=== PATIENT | female | born 1980 | race Caucasian/White ===

== ENCOUNTER 2022-03-07 20:06 | Emergency (ER) | payer OTHER, SELFPAY ==
--- NOTE | ~2022-03-07 | US_ITS ---
EXAMINATION: US VENOUS ULTRASOUND WITH DOPPLER LOWER EXTREMITY, LEFT CLINICAL INFORMATION: Left lower extremity pain COMPARISON: None TECHNIQUE: Ultrasound of the deep veins is performed from the hip to the calf with compression sonography and color and pulse Doppler assessment. Spectral analysis with color-flow imaging is performed. FINDINGS: There is normal venous compression and respiratory variation and augmented flow. The visualized common femoral vein, superficial femoral vein, profunda femoral vein, popliteal vein, and the trifurcation region shows no evidence of deep venous thrombosis. There is no significant popliteal fossa cyst. If the patient's symptoms persist, followup ultrasound in 5 days 7 days might be of value to exclude proximal propagation from a non-visualized calf vein. US/US venous duplex LE LT IMPRESSION: No DVT demonstrated in the left lower extremity.
--- NOTE | ~2022-03-07 | XR_ITS ---
EXAMINATION: XR CHEST CLINICAL INFORMATION: Chest pain. COMPARISON: None TECHNIQUE: Frontal view of the chest was obtained. FINDINGS: No significant abnormality is noted involving the heart, lungs, mediastinum, bony thorax or soft tissues. XR/XR chest 1V IMPRESSION: Unremarkable chest examination.
[2022-03-07 20:38] VITALS: BP 153/87; PULSE 92; TEMP 36.3; O2SAT 98; BMI 29.7
--- NOTE | 2022-03-07 20:45 | ECG_ITS ---
Test Reason : CX PAIN Blood Pressure : / mmHG Vent. Rate : 084 BPM Atrial Rate : 084 BPM P-R Int : 138 ms QRS Dur : 088 ms QT Int : 372 ms P-R-T Axes : 047 -05 030 degrees QTc Int : 439 ms Normal sinus rhythm Normal ECG When compared with ECG of 27-JUL-2018 16:53, Vent. rate has decreased BY 41 BPM Referred By: Generic ED Physician Electronically Signed By:EUGENIO SHAH MD
--- NOTE | 2022-03-07 22:01 | ED_ITS ---
HPI - Extremity Problem General Chief complaint: Extremity Problem Stated complaint: leg pain, radiates up body Time Seen by Provider: 03/07/22 21:01 History of Present Illness HPI Narrative: Patient is a 41-year-old female with a history of diabetes, hypertension, high cholesterol. Presented today with 2 problems 1 is that she is having chest pain that is on the left side it is lasting a few minutes. Not associated with any specific events. Not associated with shortness of breath. Not worsen with deep breath. And then it subsequently goes away. Not on any control. Patient denies having any history of blood clots. In addition patient is also developing left thigh pain. Patient denies any trauma. Denies any travel. No history of blood clots in the past. Not on blood thinners. No history of cancer. The pain is fairly constant the lower extremity. Does not radiate. Denies any fever chills. There is no rash. Patient from home. The chest pain and leg pain are not related. MD Complaint: extremity pain Related Data Previous Rx's Medication Instructions Recorded metformin 1,000 mg tablet 1,000 mg PO BID #60 tabs 03/19/21 blood sugar diagnostic (FreeStyle #50 ea 05/15/21 Test strips) blood sugar diagnostic (OneTouch #100 ea 10/03/21 Ultra Test strips) gabapentin 100 mg capsule 100 mg PO BEDTIME #14 caps 10/03/21 insulin glargine 100 unit/mL 45 unit (0.45 mL) subcut DAILY 28 10/03/21 subcutaneous solution (Lantus days #12.6 mL U-100 Insulin) lancets 33 gauge (OneTouch Delica #100 ea 10/03/21 Lancets) Allergies Allergy/AdvReac Type Severity Reaction Status Date / Time No Known Allergies Allergy Verified 03/07/22 20:45 [No Known Allergies*] Review of Systems Review of Systems: No fever no chills no cough no congestion Yes all other systems are reviewed and are negative [facility] Past Medical History Attestation statement: The following information was validated with the patient. Medical History Class 1 obesity with serious comorbidity and body mass index (BMI) of 34.0 to 34.9 in adult Diabetes mellitus type 2, insulin dependent Left sided sciatica oysterman (current) use of insulin Microalbuminuria Mild recurrent major depression Surgical History History of tubal ligation Family History Family History Mother Diabetes Mental health disorder Father Hypertension Social History Social History Housing: Apartment Alcohol intake: never Patient Tobacco Use Status: Current everyday Tobacco user Tobacco use type: Cigarette Cigarettes Per Day: 4 e-Cigarette/Vaping Use: Never Used Second Hand Smoke Exposure: No Advance Directives: No Advance Directives Information Provided: No service: No Current occupational status: employed Current occupational exposures/hazards: No Physical Exam Vital Signs: Vital Signs: Last Vital Signs Temp 97.4 F 03/07/22 20:38 Pulse 85 03/08/22 00:06 Resp 18 03/08/22 00:06 BP 131/80 03/08/22 00:06 Pulse Ox 98 03/08/22 00:06 O2 Del Method 03/08/22 00:06 BMI result Body Mass Index 29.7 Appearance: Alert. Oriented X3. No acute distress. Eyes: Pupils equal, round and reactive to light. ENT: Pharynx normal. Neck: Normal inspection. Neck supple. No lymph nodes noted. No crepitus CVS: Normal heart rate and rhythm. Pulses normal. Normal S1 and S2 Respiratory: No respiratory distress. Breath sounds normal. No Wheezing. No rales. There is no chest wall tenderness. Chest pain not reproduced with touch Abdomen: Soft and nontender. No rigidity. No distention. good BS x4 Skin: Skin warm and dry. Normal skin color. Normal skin turgor. Extremities: No lower extremity edema. Neurovascular intact to all extremities. No Lacerations. No Rash. Calf size equal at 10 cm below the tibial tuberosity bilaterally. There is good pulses distally. Skin intact. Neuro: Oriented X 3. No motor deficit. No sensory deficit. Moving all extermities. No slurred speech MDM - Extremity (Nontraumatic) MDM Narrative Medical decision making narrative: Patient's D-dimer is negative. Ultrasound of the lower extremity is negative for DVT. Making PE unlikely. Patient's chest pain atypical. EKG showed a sinus pattern heart rate is 80 LA QRS QT within normal limits there is no acute ST segment elevation. Patient's troponin was negative. He does have multiple wrist but atypical history negative EKG troponin negative heart score still less than 3. Will discharge patient home for close follow-up. Chest x-ray showed no focal infiltrate no pneumonia no pneumothorax. Patient's sugar however was elevated at close to 400. Will give a dose of insulin. Will have patient closely follow up on an outpatient basis after sugar comes down. Patient's sugars down to less than 200. In stable condition will discharge home. Lab Data Attestation: I reviewed the patient's lab results. Result diagrams: 03/07/22 22:18 03/07/22 22:18 Labs: Lab Results 03/07/22 03/07/22 03/07/22 Range/Units 22:18 22:18 22:18 WBC 13.3 H (4.8-10.8) X10*3/uL RBC 5.55 H (4.20-5.50) X10*6/uL Hgb 15.0 (12.0-16.0) g/dl Hct 44.1 (37.0-47.0) % MCV 79.5 L (80.0-98.0) fL MCH 27.0 (27.0-33.0) pg MCHC 34.0 (31.0-35.0) g/dl RDW 12.2 (11.0-16.0) % Plt Count 398 (160-400) X10*3/uL MPV 10.2 (9.4-12.3) fL Immature Gran % (Auto) 0.5 H (0.0-0.4) % Neut % (Auto) 60.9 (45-73) % Lymph % (Auto) 29.4 (20-40) % Alexander % (Auto) 6.9 (2-11) % Eos % (Auto) 1.7 (0-4) % Baso % (Auto) 0.6 (0-2) % Lymph # (Auto) 3.9 (1.2-4.9) X10*3/uL Alexander # (Auto) 0.9 (0.1-1.2) X10*3/uL Eos # (Auto) 0.2 (0.0-0.4) X10*3/uL Baso # (Auto) 0.1 (0.0-0.2) X10*3/uL Abs Immat Gran (auto) 0.06 H (0.00-0.03) X10*3/uL Absolute Neuts (auto) 8.1 (2.0-8.3) x10*3/uL Absolute Nucleated RBC 0.000 (0.0-0.012) X10*3/uL Nucleated RBC % (auto) 0.0 (0.0-0.2) /100WBC D-Dimer High Sensitivty < 150 NG/ML Sodium 135 (135-145) mmol/L Potassium 4.3 (3.3-5.1) mmol/L Chloride 97 (96-108) mmol/L Carbon Dioxide 27 (22-29) mmol/L Anion Gap 15 (12-20) BUN 15 (9-16) mg/dL Creatinine 0.92 (0.5-1.4) mg/dL Estim Creat Clear Calc 90.7 Estimated GFR > 60 POC Glucose (60-115) mg/dL Random Glucose 384 H* (60-115) mg/dL Calcium 9.7 (8.4-10.2) mg/dL Total Bilirubin 0.4 (0.0-1.0) mg/dL Direct Bilirubin < 0.2 (0.0-0.5) mg/dL AST 9 (5-31) U/L ALT 12 (0-31) U/L Alkaline Phosphatase 121 H (39-117) U/L Troponin I High Sens (<3.5-17.0) ng/L Total Protein 7.9 (6.5-8.0) g/dL Albumin 4.3 (3.5-5.0) g/dL Beta HCG, Quant < 2 mIU/mL 03/07/22 03/08/22 Range/Units 22:18 00:45 WBC (4.8-10.8) X10*3/uL RBC (4.20-5.50) X10*6/uL Hgb (12.0-16.0) g/dl Hct (37.0-47.0) % MCV (80.0-98.0) fL MCH (27.0-33.0) pg MCHC (31.0-35.0) g/dl RDW (11.0-16.0) % Plt Count (160-400) X10*3/uL MPV (9.4-12.3) fL Immature Gran % (Auto) (0.0-0.4) % Neut % (Auto) (45-73) % Lymph % (Auto) (20-40) % Alexander % (Auto) (2-11) % Eos % (Auto) (0-4) % Baso % (Auto) (0-2) % Lymph # (Auto) (1.2-4.9) X10*3/uL Alexander # (Auto) (0.1-1.2) X10*3/uL Eos # (Auto) (0.0-0.4) X10*3/uL Baso # (Auto) (0.0-0.2) X10*3/uL Abs Immat Gran (auto) (0.00-0.03) X10*3/uL Absolute Neuts (auto) (2.0-8.3) x10*3/uL Absolute Nucleated RBC (0.0-0.012) X10*3/uL Nucleated RBC % (auto) (0.0-0.2) /100WBC D-Dimer High Sensitivty NG/ML Sodium (135-145) mmol/L Potassium (3.3-5.1) mmol/L Chloride (96-108) mmol/L Carbon Dioxide (22-29) mmol/L Anion Gap (12-20) BUN (9-16) mg/dL Creatinine (0.5-1.4) mg/dL Estim Creat Clear Calc Estimated GFR POC Glucose 177 H (60-115) mg/dL Random Glucose (60-115) mg/dL Calcium (8.4-10.2) mg/dL Total Bilirubin (0.0-1.0) mg/dL Direct Bilirubin (0.0-0.5) mg/dL AST (5-31) U/L ALT (0-31) U/L Alkaline Phosphatase (39-117) U/L Troponin I High Sens < 3.5 (<3.5-17.0) ng/L Total Protein (6.5-8.0) g/dL Albumin (3.5-5.0) g/dL Beta HCG, Quant mIU/mL Discharge Plan Discharge Clinical Impression: Diabetes, Chest pain Patient Disposition: Home, Self-Care Instructions: Chest Pain (DC), How to Check your Blood Sugar (ED), Type 2 Diabetes Management for Adults (ED) Prescriptions: No Action metformin 1,000 mg tablet 1,000 mg PO BID Qty: 60 6RF (DME) FreeStyle Test Strip See Rx Instructions .Route Qty: 50 6RF Rx Instructions: Use 1 test strip twice a day gabapentin 100 mg capsule 100 mg PO BEDTIME Qty: 14 0RF Lantus U-100 Insulin 100 unit/mL solution 45 unit subcut DAILY 28 Days Qty: 12.6 5RF (DME) lancets [OneTouch Delica Lancets] 33 gauge misc See Rx Instructions .Route Qty: 100 3RF Rx Instructions: As directed (DME) OneTouch Ultra Test Strip See Rx Instructions .Route Qty: 100 3RF Rx Instructions: As directed Referrals: Carlos Schreiber MD [Physician] - Physician,Unknown J [Primary Care Provider] - Print Language: Barbadian
[2022-03-07 22:35] LABS: MANUAL DIFF FLAG NO
[2022-03-07 22:37] LABS: Basophils Absolute Auto 0.1 X10*3/uL (0.0-0.2); Basophils Percent Auto 0.6 % (0-2); Eosinophils Absolute Auto 0.2 X10*3/uL (0.0-0.4); Eosinophils Percent Auto 1.7 % (0-4); Hematocrit 44.1 % (37.0-47.0); Imm Gran Abs Auto 0.06 X10*3/uL (0.00-0.03); Imm Gran Pct Auto 0.5 % (0.0-0.4); Lymphocytes Absolute Auto 3.9 X10*3/uL (1.2-4.9); Lymphocytes Percent Auto 29.4 % (20-40); Mean Corpuscular Volume 79.5 fL (80.0-98.0); Mean Platelet Volume 10.2 fL (9.4-12.3); Monocytes Absolute Auto 0.9 X10*3/uL (0.1-1.2); Monocytes Percent Auto 6.9 % (2-11); Neutrophils Absolute Auto 8.1 x10*3/uL (2.0-8.3); Neutrophils Percent Auto 60.9 % (45-73); Platelet Count 398 X10*3/uL (160-400); Red Blood Count 5.55 X10*6/uL (4.20-5.50); Red Cell Distribution Width 12.2 % (11.0-16.0); White Blood Count 13.3 X10*3/uL (4.8-10.8)
[2022-03-07 22:54] LABS: D Dimer High Sensitivity < 150 NG/ML
[2022-03-07] MEDS: Aspirin 81 MG TAB.CHEW 324 MG PO (22:54)
[2022-03-07 22:59] LABS: Alanine Aminotransferase 12 U/L (0-31); Albumin Level 4.3 g/dL (3.5-5.0); Alkaline Phosphatase 121 U/L (39-117); Anion Gap 15 (12-20); Aspartate Amino Transferase 9 U/L (5-31); Bilirubin Direct < 0.2 mg/dL (0.0-0.5); Bilirubin Total 0.4 mg/dL (0.0-1.0); Blood Urea Nitrogen 15 mg/dL (9-16); Calcium 9.7 mg/dL (8.4-10.2); Carbon Dioxide 27 mmol/L (22-29); Chloride 97 mmol/L (96-108); Creatinine Clr Calc Pharmacy 90.7; Estimated Glomerular Filt Rate > 60; Glucose Random 384 mg/dL (60-115); Potassium 4.3 mmol/L (3.3-5.1); Sodium 135 mmol/L (135-145); Total Protein 7.9 g/dL (6.5-8.0)
[2022-03-07 23:00] LABS: Troponin-I High Sensitivity < 3.5 ng/L (<3.5-17.0)
[2022-03-07 23:01] LABS: HCG Quantitative < 2 mIU/mL
[2022-03-07] MEDS: Insulin Regular, Human 100 UNIT/ML 3 ML VIAL 9 UNIT IVPUSH (23:33)
[2022-03-08 00:06] VITALS: BP 131/80; PULSE 85; RESP 18; O2SAT 98
[2022-03-08 00:49] LABS: Glucose, Whole Blood 177 mg/dL (60-115)
== END 2022-03-08 01:24 | disposition home or self-care (01) ==
PROVIDERS: Emergency Provider Emergency Medicine Emergency Medical Services
DX: R07.89 Other chest pain (principal); E11.9 Type 2 diabetes mellitus without complications; M79.652 Pain in left thigh; I10 Essential (primary) hypertension; E78.00 Pure hypercholesterolemia, unspecified; Z79.4 Long term (current) use of insulin; F17.210 Nicotine dependence, cigarettes, uncomplicated
CPT/HCPCS: 36415; 71045; 80048; 80076; 82947; 84484; 84702; 85025; 85379; 93005; 93971; 96374; 99284

== ENCOUNTER 2024-04-19 10:55 | Outpatient (AMB) | payer MEDICAID, SELFPAY ==
--- NOTE | 2024-04-19 10:59 | MHC.PC.OV ---
Vital Signs 04/19/24 11:03 Height 5 ft 7 in Weight 205 lb BMI 32.1 BP 138/80 Blood Pressure Location Lt brachial Position Sitting Intake Visit Reasons: annual exam Intake Note: Patient here for an Annual Physical Exam Swedish Masseuse Required: No Accompanied by: Self / Same As Patient Allergies No Known Allergies [No Known Allergies*] Allergy (Verified 04/19/24 11:16) Medication List - Last Reconciled 04/19/24 by Norma Holbrook MD blood sugar diagnostic (FreeStyle Test strips) Use 1 test strip twice a day blood sugar diagnostic (OneTouch Ultra Test strips) As directed gabapentin 100 mg PO BEDTIME insulin glargine (Lantus U-100 Insulin) 30 units subcut DAILY lancets As directed metformin 1,000 mg PO BID Tobacco use date assessed: 04/19/24 Dental Screening Dental Screen Date: 04/19/24 Did you have a dental visit in the last 12 months?: No Did you have a dental problem in the last 6 months where you did not have access to dental care?: No Was dental information given to patient?: Patient has dentist HPI HPI Comments History of Present Illness Details This is a 44-year-old female with diabetes mellitus type 2 complicated with neuropathy on long-term current use of insulin that comes for her physical exam. Last diabetic eye exam was over a year ago in [place], [place]. A1c not on goal and she has been out of metformin for over a month. I will increase insulin and refill metformin. Last mammogram was over a year old. She is obese with a BMI of 32.1 and was advised to do diet and exercise to reach BMI goal less than 30. [facility] Medical History (Updated 04/19/24 @ 11:44 by Norma Holbrook MD) Mild recurrent major depression Microalbuminuria penitentiary (current) use of insulin Class 1 obesity with serious comorbidity and body mass index (BMI) of 34.0 to 34.9 in adult Left sided sciatica Diabetes mellitus type 2, insulin dependent Surgical History History of tubal ligation Family History Mother Diabetes Mental health disorder Father Hypertension Social History (Updated 04/19/24 @ 11:20 by Norma Holbrook MD) Housing: Apartment Alcohol intake: never Patient Tobacco Use Status: Current someday Tobacco user Tobacco use type: Cigarette Cigarettes Per Day: 3 e-Cigarette/Vaping Use: Never Used Second Hand Smoke Exposure: No service: No Current occupational status: employed Current occupational exposures/hazards: No Cognitive needs: No Hearing needs: No Vision needs: Yes Questionnaire PHQ-9 Over the last 2 weeks, how often have you been bothered by any of the following problems? 1. Little interest or pleasure in doing things: not at all 2. Feeling down, depressed, or hopeless: several days 3. Trouble falling or staying asleep, or sleeping too much: not at all 4. Feeling tired or having little energy: several days 5. Poor appetite or overeating: not at all 6. Feeling bad about yourself - or that you are a failure or have let yourself or your family down: not at all 7. Trouble concentrating on things, such as reading the newspaper or watching television: not at all 8. Moving or speaking so slowly that other people could have noticed. Or the opposite - being so fidgety or restless that you have been moving around a lot more than usual: not at all 9. Thoughts that you would be better off or of hurting yourself in some way: not at all Total score: 2 Depression Screening Interpretation: Negative Depression Screening Done: Yes 70320 - PHQ-9 Billing: Yes Source: Developed by Drs. Juanjose Chavarria, Ramila Zeng, Francisco J Austin and colleagues, with an educational nathan from [employer] Thrive Questionnaire Date Thrive assessed: 04/19/24 I am a: Patient What is your living situation today?: I have a steady place to live Within the past 12 months, did the food you bought not last and you didn't have the money to get more?: Never true Within the past 12 months, did you worry whether your food would run out before you got money to buy more?: Never true Do you have trouble paying for medicines?: No Do you have trouble getting transportation to medical appointments?: No Do you have trouble paying your heating and electricity bill?: No Do you have trouble taking care of your child, family member or friend?: No Do you have trouble with day-to-day activities such as bathing, preparing meals, shopping, managing finances, etc.?: No Are you currently unemployed and looking for a job?: No Are you interested in more education?: No Please select the resources that you would like help with: None Currently or been in a relationship where the following occur: No concerns reported THRIVE Score: 0 AUDIT C Alcohol Use Questionnaire (AUDIT-C) 1. How often do you have a drink containing alcohol?: Monthly or less 2. How many drinks containing alcohol do you have on a typical day when you are drinking?: 3 or 4 3. How often do you have six or more drinks on one occasion?: Never Total Score: 2 Score Reviewed/Action Taken: No BUCK-7 AMB Questionnaire BUCK-7 Date BUCK - 7 assessed: 04/19/24 Feeling nervous, anxious, or on edge: 0 = Not at all Not being able to stop or control worryin = Not at all Worrying too much about different things: 0 = Not at all Trouble relaxin = Several days Being so restless that it is hard to sit still: 0 = Not at all Becoming easily annoyed or irritable: 0 = Not at all Feeling afraid as if something awful might happen: 0 = Not at all Total BUCK-7 score (0-4 normal; 5-9 mild; 10-14 moderate; 15-21 severe): 1 Source: Developed by Drs. Juanjose Chavarria, Ramila Zeng, Francisco J Austin and colleagues, with an educational nathan from [employer] BUCK-7 Assessment Billing BUCK-7 Assessment Tool: BUCK-7 Assessment 36911 Review of Systems Const All systems reviewed & are unremarkable except as noted in HPI and below Reports fatigue Card Denies chest pain at rest, Denies chest pain with activity, Denies edema, Denies irregular heart rhythm, Denies claudication, Denies dyspnea, Denies dyspnea on exertion, Denies orthopnea, Denies paroxysmal nocturnal dyspnea and Denies slow heart rate Resp Denies cough, Denies dyspnea and Denies dyspnea on exertion GI Denies abdominal pain, Denies change in bowel habits, Denies excessive flatus, Denies nausea and Denies vomiting Endo Reports fatigue Physical exam (Primary Care) Vital Signs: Last Vital Signs BP 138/80 04/19/24 11:03 BMI result Body Mass Index 32.1 BMI Assessment/Plan discussion: High BMI High, discussed plan: lifestyle, weight reduction, dietary and physical activity Tobacco/Smoking Status: Tobacco use Status Tobacco use date assessed 04/19/24 04/19/24 11:06 Patient Tobacco Use Status Current someday Tobacco 04/19/24 11:06 Tobacco use type Cigarette 04/19/24 11:01 e-Cigarette/Vaping Use Never Used 04/19/24 11:01 Are you ready to quit: Yes Relapse Prevention: discussed the importance of a supportive environment, discussed extending NRT, discussed negative mood or depression after quitting, weight gain after smoking is common and discussed dietary, exercise and/or lifestyle changes Number of minutes spent counselin CPT code: 97400 - 4-10 Minutes PHQ-9: PHQ-9 Score PHQ-9: Total score 2 04/19/24 11:10 Depression Screening Interpretation: Negative Thrive Assessment: Date of Thrive Assessment Date Thrive assessed 04/19/24 04/19/24 11:01 Currently or been in a relationship where the following occur: No concerns reported HENMT Head: Yes normal to inspection, Yes normocephalic and Yes atraumatic Ears: external ears normal Eyes General: appearance normal, both eyes and all related structures Eyelids: Yes eyelids normal Conjunctivae: conjunctivae normal Neck Neck: Yes normal visual inspection and Yes supple Resp Effort & Inspection: normal respiratory effort Auscultation: clear to auscultation bilaterally Cardio Jugular venous distension: no JVD Rate: regular rate Rhythm: regular rhythm Heart sounds: S1 normal heart sound present and S2 normal heart sound present GI Inspection: Yes normal to inspection Palpation (GI): Soft to palpation and nontender Auscultation: normal bowel sounds Skin General skin exam: no rashes or lesions noted Neuro General: no focal motor deficits Extrem General: Yes full ROM Psych Appearance: grossly normal Results AMB Hemoglobin A1c AMB Hemoglobin A1c 13.2 % Last Edit by JESSICA Stiles on 04/19/24 11:11 Results Reviewed Results Reviewed: Laboratory Last Values Hgb A1c (Clinic) 13.2 % (4.0-6.0) H 04/19/24 10:59 Assessment and Plan Assessment & Plan (1) Physical exam: Code(s): Z00.00 - Encounter for general adult medical examination without abnormal findings Plan: Repeat in a year. (2) Type 2 diabetes mellitus with complication, with long-term current use of insulin: Code(s): E11.8 - Type 2 diabetes mellitus with unspecified complications; Z79.4 - long term care phlebotomist (current) use of insulin Plan: Continue metformin. Increase insulin to 35 units once a day. Referred to Ophthalmology. (3) Diabetic neuropathy: Code(s): E11.40 - Type 2 diabetes mellitus with diabetic neuropathy, unspecified Qualifiers: Diabetes mellitus type: type 2 Diabetes mellitus complication detail: with other neurological complication Qualified Code(s): E11.49 - Type 2 diabetes mellitus with other diabetic neurological complication Plan: Continue gabapentin. Orders: Orders Microalbumin, Random (w Creat) Today R80.9 - Proteinuria, unspecified Complete Blood Count Auto Diff Today D72.829 - Elevated white blood cell count, unspecified AMB Hemoglobin A1c Today E11.9 - Type 2 diabetes mellitus without complications, Z79.4 - long term care phlebotomist (current) use of insulin Lipid Panel Today E78.5 - Hyperlipidemia, unspecified Vitamin D 25-OH (D2 and D3) Today E55.9 - Vitamin D deficiency, unspecified Vitamin B12 and Folate Today E53.8 - Deficiency of other specified B group vitamins MM tomosynthesis screening BI Today Z12.31 - Encounter for screening mammogram for malignant neoplasm of breast Referrals Ophthalmology Referral E11.9 - Type 2 diabetes mellitus without complications, Z79.4 - penitentiary (current) use of insulin Medications: Changed From insulin glargine (Lantus U-100 Insulin) 35 units subcut DAILY E11.9 - Type 2 diabetes mellitus without complications, Z79.4 - long term care phlebotomist (current) use of insulin To insulin glargine (Lantus U-100 Insulin) 35 units (0.35 mL) subcut DAILY 90 days 31.5 mL 1RF E11.9 - Type 2 diabetes mellitus without complications, Z79.4 - penitentiary (current) use of insulin Refilled metformin 1,000 mg PO BID 60 tabs 6RF Coding Level of Care Code Est Pt Prev Care 40-64y(43851) Diagnoses Physical exam Z00.00 Type 2 diabetes mellitus with complication, with long-term current use of insulin E11.8; Z79.4 Other diabetic neurological complication associated with type 2 diabetes mellitus E11.49 Diabetes mellitus type: type 2 Diabetes mellitus complication detail: with other neurological complication Additional Codes BUCK-7 Assessment Billing - BUCK-7 Assessment Tool: BUCK-7 Assessment 40889 ([id number]) Vital Signs *Quality* - CPT code: 34093 - 4-10 Minutes ([id number]) Time Spent (min) 31
[2024-04-19 11:03] VITALS: BP 138/80; BMI 32.1
== END 2024-04-19 11:35 | disposition home or self-care (01) ==
PROVIDERS: PCP Internal Medicine; Visit Provider Internal Medicine
DX: Z00.00 Encounter for general adult medical examination without abnormal findings (principal); E11.8 Type 2 diabetes mellitus with unspecified complications; Z79.4 Long term (current) use of insulin; E11.49 Type 2 diabetes mellitus with other diabetic neurological complication

== ENCOUNTER → 2024-04-19 10:55 | Outpatient (BNVA) | payer MEDICAID, SELFPAY | PROVIDERS: PCP Internal Medicine; Visit Provider Internal Medicine | DX: Z00.00 Encounter for general adult medical examination without abnormal findings (principal); E11.49 Type 2 diabetes mellitus with other diabetic neurological complication; Z79.4 Long term (current) use of insulin | CPT/HCPCS: 83036; 99396 ==

== ENCOUNTER 2024-12-29 09:00 | Outpatient (REF) | payer MEDICAID, SELFPAY ==
--- OUTSIDE RECORDS SUMMARY | 2024-12-29 09:28 | XMS_ITS | Clinical Summary ---
Author Organization [employer] Address [address] [facility] [address] [place] [address] Care Team Providers Care Artifacts Conservator Name Role Phone Unavailable Primary Care Provider Unavailabl e Allergies No known active allergies Medications insulin aspart (NovoLOG FLEXPEN) 100 UNIT/ML penIndication s:Type 2 diabetes mellitus with hyperglycemia , with long-term current use of insulin (CMS/HCC) Use 8 units before breakfast, lunch and dinner -surinamese 10 mL 12 Active Lantus SoloStar 100 UNIT/ML penIndication s:Type 2 diabetes mellitus with hyperglycemia , with long-term current use of insulin (CMS/HCC) Inject 40 units at bedtime -surinamese 3 mL 3 025 Active metFORMIN (Glucophage) 1000 MG tabletIndicat ions:Type 2 diabetes mellitus with hyperglycemia , with long-term current use of insulin (CMS/HCC) Take 1 tablet (1,000 mg) by mouth 2 times daily. 60 tablet 3 Active Blood Pressure kit Check blood pressure daily 1 kit Active Continuous Glucose Geriatric Social Work Professor (FreeStyle Corine 3 [place]) deviceIndicat ions:Type 2 diabetes mellitus with hyperglycemia , with long-term current use of insulin (CMS/HCC) 1 each Once per day. Use as directed for CGM 1 each 025 Active glucose blood (FreeStyle Precision Nicolas Test) test stripIndicati ons:Type 2 diabetes mellitus with hyperglycemia , with long-term current use of insulin (CMS/HCC) Use to test blood sugar bid times daily in case of CGM failure or extremes of BG 100 each 11 025 2025 Active Continuous Glucose Sensor (FreeStyle Corine 3 Plus Sensor) miscIndicatio ns:Type 2 diabetes mellitus with hyperglycemia , with long-term current use of insulin (CMS/HCC) 1 each every 15 days. Apply 1 every 15 days as directed for CGM 2 each 11 Active Lantus SoloStar 100 UNIT/ML pen INJECT 35 UNIT (0.35 ML) SUBCUTANEOUSLY DAILY FOR 90 DAYS 025 2024 Discontinued(R eorder (will not trigger notification to Pharmacy)) metFORMIN (Glucophage) 1000 MG tablet Take 1 tablet by mouth 2 times daily. 024 2024 Discontinued(R eorder (will not trigger notification to Pharmacy)) insulin aspart (NovoLOG FLEXPEN) 100 UNIT/ML penIndication s:Type 2 diabetes mellitus with hyperglycemia , with long-term current use of insulin ([facility]) Use 8 units before breakfast, lunch and dinner -surinamese 10 mL 12 025 2024 Discontinued(E ntered in error) Lantus SoloStar 100 UNIT/ML penIndication s:Type 2 diabetes mellitus with hyperglycemia , with long-term current use of insulin ([facility]) Inject 40 units at bedtime -surinamese 3 mL 3 2024 Discontinued(E ntered in error) metFORMIN (Glucophage) 1000 MG tabletIndicat ions:Type 2 diabetes mellitus with hyperglycemia , with long-term current use of insulin ([facility]) Take 1 tablet (1,000 mg) by mouth 2 times daily. 60 tablet 3 2024 Discontinued(E ntered in error) Active Problems Problem Noted Date Diagnosed Date Type 2 diabetes mellitus wit h hyperglycemia, with long-term current use of insulin 12/23/2024 Assessment & Plan (12/23/2024 1:34 PM EDT): Hx of type 2 diabetes. Reports being on Metformin and Lantus 40 Units. 12/23/24 A1c 11 and BGL >200. -Urine dip without evidence of DKA -Got pt new patient visit. -Ordered labs 12/23/24 -Start insulin aspart (NovoLOG FLEXPEN) 100 UNIT/ML pen -Start metFORMIN (Glucophage) 1000 MG -Start Lantus SoloStar 100 UNIT/ML pen Encounters Date Type Department Care Team Description 12/23/2024 2:00 PM EDT Office Visit [facility] [address] [place] [address] Nancy Aaron MD Type 2 diabetes mellitus with hyperglycemia, with long-term current use of insulin ([facility]) (Primary Dx); Viral gastroenteritis; Elevated blood pressure reading without diagnosis of hypertension; Screening examination for STI 12/23/2024 Travel 10/15/2024 Population Health Risk Score [facility] () Department [address] [place] [id number] Provider, Population [employer] Generic from Last 3 Months Family History Medical History Relation Name Comments Stomach cancer Maternal Grandfather Diabetes Mother Relation Name Status Comments Maternal Grandfather Mother Social History Tobacco Use Types Packs/Day Years Used Date Smoking Tobacco: Never Passive Smoke Exposure: Never Smokeless Tobacco: Never Tobacco Cessation:Counseling Given: Not Answered Comments No Sex and Gender Information Value Date Recorded Sex Assigned at Female 06/03/2022 10:27 AM EDT Legal Sex Female 10:27 AM EDT Gender Identity Female 07/05/2024 10:43 AM EST Sexual Orientation Straight 07/05/2024 10 :43 AM EST Last Filed Vital Signs Vital Sign Reading Time Taken Comments Blood Pressure 148/98 12/23/2024 12:58 PM EDT Pulse 74 12/23/2024 12:58 PM EDT Temperature 37.1 ??C (98.8 ??F) 12/23/2024 1 2:58 PM EDT Respiratory Rate 18 12/23/2024 12:5 8 PM EDT Oxygen Saturation - - Inhaled Oxygen Concentration - - Weight 99.7 kg (219 lb 12.8 oz) 025 12:58 PM EDT Height 170.2 cm (5' 7 ) 12/23/2024 12:5 8 PM EDT Body Mass Index 34.43 12/23/2024 12:58 PM EDT Plan of Treatment Upcoming Encounters Date Type Department Care Team (Late st Contact Info) Description 12/30/2024 1:00 PM EDT Clinical Support [facility] [address] [place] [phone] 01/24/2025 10:45 AM EDT Office Visit [facility] [address] [place] [phone] Jeny Michaels DO [address] [place] [address] Health Maintenance Due Date Last Done Comments Depression Screening 1980 HIV Screening 1980 Lipid Panel 1980 SDOH Screening 1980 Disability Screening 1980 Diabetes: Foot Exam 1990 Eye Exam 1990 Alcohol/Substance Use Screening 1992 Family Planning (PISQ) 1995 Hepatitis C Screening 1998 DTaP/Tdap/Td Vaccines (1 - Tdap) 1999 Diabetes: Urine Protein Screening 1999 Hepatitis B Vaccines (1 of 3 - 19+ 3-dose series) 1999 Pneumococcal Vaccine: Pediat rics (0 to 5 Years) and At-Risk Patients (6 to 49) Years) (1 of 2 - PCV) 1999 Pap Smear 2001 Cervical Cancer Screening 2010 HPV/Cotest 2010 Mammogram 2020 COVID-19 Vaccine (1 - 2023-2 5 season) 2024 Influenza Vaccine (#1) 2024 07/31/2018 Diabetes: Hemoglobin A1C 03/25/2025 12/23/2024 Tobacco Screening 12/23/2025 12/23/2024 Zoster Vaccines (1 of 2) 2030 RSV Patients and Pa tients Aged 60 years or older (1 - 1-dose 75+ series) 2055 HIB Vaccines Aged Out No longer eligi ble based on patient's age to complete this topic HPV Vaccines Aged Out No longer eligi ble based on patient's age to complete this topic Hepatitis A Vaccines Aged Out No long er eligible based on patient's age to complete this topic IPV Vaccines Aged Out No longer eligi ble based on patient's age to complete this topic Meningococcal B Vaccine Aged Out No l onger eligible based on patient's age to complete this topic Meningococcal Vaccine Aged Out No teo branden eligible based on patient's age to complete this topic RSV under 20 months Aged Out No longe r eligible based on patient's age to complete this topic Rotavirus Vaccines Aged Out No longer eligible based on patient's age to complete this topic Procedures Procedure Name Priority Date/Time Associated Diagnosis Comments POCT URINALYSIS DIPSTICK Routine 12/23/2024 1:20 PM EDT Type 2 diabetes mellitus with hyperglycemia, with long-term current use of insulin ([facility]) POCT GLUCOSE Routine 12/23/2024 1:20 PM EDT Type 2 diabetes mellitus with hyperglycemia, with long-term current use of insulin ([facility]) POCT GLYCATED HEMOGLOBIN, TOTAL Routine 12/23/2024 1:20 PM EDT Type 2 diabetes mellitus with hyperglycemia, with long-term current use of insulin ([facility]) from Last 3 Months Results * (ABNORMAL) POCT A1C (12/23/2024 1:20 PM EDT) Hemoglobin A1C 11.9(A) 4.0 - 6.0 % Blood 12/23/2024 1:20 PM EDT Nancy Aaron MD POINT OF CARE TEST ENTER/E DIT ORDERABLES Final Result * (ABNORMAL) POCT glucose manually resulted (12/23/2024 1:20 PM EDT) Glucose Blood, POC 291(A) 60 - 200 mg/dL Blood Capillary blood specimen / Unknown 12/23/2024 1:20 PM EDT Nancy Aaron MD POINT OF CARE TEST ENTER/E DIT ORDERABLES Final Result * (ABNORMAL) POCT urinalysis dipstick manually resulted (12/23/2024 1:20 PM EDT) Color, UA Yellow Clarity, UA Clear Glucose, UA Trace Comment:500 mg/dl Bilirubin, UA Negative Ketones, UA Negative Spec Grav, UA 1.020 Blood, UA Positive(A) Negative, None Detected Comment:trace pH, UA 5.5 Protein, UA Trace Comment:30 mg Urobilinogen, UA 0.2 Leukocytes, UA Trace Negative, Rare, Trace Nitrite, UA Negative Negative, None Detected Urine 12/23/2024 1:20 PM EDT Nancy Aaron MD POINT OF CARE TEST ENTER/E DIT ORDERABLES Final Result from Last [address] [place] [id number] [facility] [address] [place] [id number] [place] [phone] [place] [phone]
[2024-12-29 11:28] LABS: MANUAL DIFF FLAG NO
[2024-12-29 11:34] LABS: Basophils Absolute Auto 0.1 X10*3/uL (0.0-0.2); Basophils Percent Auto 0.9 % (0-2); Eosinophils Absolute Auto 0.3 X10*3/uL (0.0-0.4); Eosinophils Percent Auto 4.5 % (0-4); Hematocrit 41.2 % (37.0-47.0); Hemoglobin 13.4 g/dl (12.0-16.0); Imm Gran Abs Auto 0.03 X10*3/uL (0.00-0.03); Imm Gran Pct Auto 0.4 % (0.0-0.4); Lymphocytes Absolute Auto 2.5 X10*3/uL (1.2-4.9); Lymphocytes Percent Auto 32.4 % (20-40); Mean Corpuscular HGB Conc 32.5 g/dl (31.0-35.0); Mean Corpuscular Hemoglobin 26.6 pg (27.0-33.0); Mean Corpuscular Volume 81.9 fL (80.0-98.0); Mean Platelet Volume 10.3 fL (9.4-12.3); Monocytes Absolute Auto 0.6 X10*3/uL (0.1-1.2); Monocytes Percent Auto 8.5 % (2-11); Neutrophils Percent Auto 53.3 % (45-73); Platelet Count 400 X10*3/uL (160-400); Red Blood Count 5.03 X10*6/uL (4.20-5.50); Red Cell Distribution Width 13.1 % (11.0-16.0); White Blood Count 7.6 X10*3/uL (4.8-10.8)
[2024-12-29 12:18] LABS: Cholesterol 169 mg/dL (<200); HDL Cholesterol 47 mg/dL (>40); LDL Cholesterol Calculated 103 mg/dL (<100); Triglycerides 95 mg/dL (<150)
[2024-12-29 12:29] LABS: Creatinine Urine 77.03 mg/dL; Microalbum/Creatinine Ratio Ur 131.1 ug/mg cr (<30)
[2024-12-29 12:36] LABS: Folate 11.1 ng/mL (> or = 4.0); Vitamin B12 224 pg/mL (200-900)
[2025-01-01 17:13] LABS: Vitamin D 25-OH, D2 <4 ng/mL; Vitamin D 25-OH, D3 13 ng/mL; Vitamin D 25-OH, Total 13 ng/mL (30-100)
== END 2024-12-29 09:01 | disposition home or self-care (01) ==
LOC: HO.HHCL 09:00
PROVIDERS: Visit Provider Internal Medicine
DX: E78.5 Hyperlipidemia, unspecified (principal); R80.9 Proteinuria, unspecified; E55.9 Vitamin D deficiency, unspecified; D72.829 Elevated white blood cell count, unspecified; E53.8 Deficiency of other specified B group vitamins
CPT/HCPCS: 36415; 80061; 82043; 82306; 82570; 82607; 82746; 85025

== ENCOUNTER 2025-03-03 10:11 | Outpatient (REF) | payer MEDICAID, SELFPAY ==
--- OUTSIDE RECORDS SUMMARY | 2025-03-03 10:56 | XMS_ITS | Clinical Summary ---
Author Organization [employer] Address [address] [facility] [address] [place] [address] Care Team Providers Care Rubber Press Operator Name Role Phone PranavJeny roe Primary Care Provider Allergies No known active allergies Medications Blood Pressure kit Check blood pressure daily 1 kit 5 Active Continuous Glucose Rn Birthing (FreeStyle Corine 3 [place]) deviceIndicatio ns:Type 2 diabetes mellitus with hyperglycemia, with long-term current use of insulin (CMS/HCC) 1 each Once per day. Use as directed for CGM 1 each 5 Active glucose blood (FreeStyle Precision Nicolas Test) test stripIndication s:Type 2 diabetes mellitus with hyperglycemia, with long-term current use of insulin (CMS/HCC) Use to test blood sugar bid times daily in case of CGM failure or extremes of BG 100 each 5 12/24/19 26 Active Continuous Glucose Sensor (FreeStyle Corine 3 Plus Sensor) miscIndications :Type 2 diabetes mellitus with hyperglycemia, with long-term current use of insulin (CMS/HCC) 1 each every 15 days. Apply 1 every 15 days as directed for CGM 2 each 5 Active insulin aspart (NovoLOG FLEXPEN) 100 UNIT/ML penIndications: Type 2 diabetes mellitus with hyperglycemia, with long-term current use of insulin (CMS/HCC) Use 8 units before breakfast, lunch and dinner -hong konger 10 mL 5 Active Lantus SoloStar 100 UNIT/ML penIndications: Type 2 diabetes mellitus with hyperglycemia, with long-term current use of insulin (CMS/HCC) Inject 45 Units under the skin in the morning. 3 mL 3 5 Active aspirin 81 MG EC tablet Take 1 tablet (81 mg) by mouth Once per day. 30 tablet 11 5 01/25/20 Active atorvastatin (Lipitor) 10 MG tablet Take 1 tablet (10 mg) by mouth Once per day. 30 tablet 5 01/25/20 Active FREESTYLE LITE test strip Use to test blood sugar 3 times daily 100 each 5 01/25/20 Active Lancets misc Use to test blood sugar 3 times daily 100 each Active Alcohol Swabs 70 % pads Use to test blood sugar 3 times daily 100 each Active Blood Glucose Monitoring Suppl (FreeStyle [place] Lite) w/Device kit Use to test blood sugar 3 times daily 1 kit Active pen needle 32G x 4 mm misc Use as instructed 120 each 5 01/25/20 Active Dulaglutide (Trulicity) 0.75 MG/0.5ML solution auto-injector Inject 0.75 mg under the skin 1 (one) time per week. 2 mL 3 Active gabapentin (Neurontin) 300 MG capsule Take 1 capsule (300 mg) by mouth 3 times daily. 90 capsule 3 5 01/25/20 Active acetaminophen (Tylenol 8 Hour) 650 MG ER tablet Take 1 tablet (650 mg) by mouth every 8 (eight) hours if needed for mild pain. Do not crush, chew, or split. 50 tablet 2 5 01/25/20 Active Diclofenac Sodium 1 % gel Apply 2 g topically if needed in the morning, at noon, in the evening, and at bedtime (pain). 150 g 2 Active Active Problems Problem Noted Date Diagnosed Date BMI 35.0-35.9,adult 01/24/2025 Vitiligo 01/24/2025 Hyperlipidemia 01/24/2025 Diabetic polyneuropathy 01/24/2025 Type 2 diabetes mellitus 12/23/2024 Assessment & Plan (12/23/2024 1:34 PM [...] Encounters Date Type Department Care Team Description 03/03/2025 Telephone [facility] [address] [place] [address] Jeny Michaels DO 02/23/2025 Telephone [facility] [address] [place] [address] Serafinnegro Neli, CHARMAINE 01/24/2025 10:45 AM EDT Office Visit [facility] [address] [place] [phone] Jeny Michaels DO Routine history and physical examination of adult (Primary Dx); Type 2 diabetes mellitus with hyperglycemia, with long-term current use of insulin (CMS/HCC); Other hyperlipidemia; Elevated blood pressure reading without diagnosis of hypertension; Diabetic polyneuropathy associated with type 2 diabetes mellitus (CMS/HCC); Polyarthralgia; Vitiligo; BMI 35.0-35.9,adult; Encounter for screening mammogram for malignant neoplasm of breast 01/24/2025 Travel 01/19/2025 Telephone [facility] [address] [place] [id number] Jeny Michaels DO Chart Prep 01/13/2025 Patient Outreach [address] [address] Jeny Michaels DO Pre-visit Planning ((Unable to reach for PVP screening and or LVM)) 12/30/2024 1:00 PM EDT Clinical Support [facility] [address] [place] [address] Skye Alvarez, CARLIN Type 2 diabetes mellitus with hyperglycemia, with long-term current use of insulin (CMS/HCC) 12/30/2024 Travel 12/23/2024 2:00 PM EDT Office Visit [facility] [address] [place] [address] Nancy Aaron MD Type 2 diabetes mellitus with hyperglycemia, with long-term current use of insulin (CMS/HCC) (Primary Dx); Viral gastroenteritis; Elevated blood pressure reading without diagnosis of hypertension; Screening examination for STI 12/23/2024 Travel from Last 3 Months Immunizations Immunization Administration Dates Next Due Influenza injectable quadrivalent preservative f ree 07/31/2018 Family History Medical History Relation Name Comments Hypertension Father Stomach cancer Maternal Grandfather Leukemia Maternal Grandmother Diabetes Mother Hypertension Mother Kidney disease Mother Diabetes Paternal Grandmother Relation Name Status Comments Father Maternal Grandfather Maternal Grandmother Mother Paternal Grandmother Social History Tobacco Use Types Packs/Day Years Used Date Smoking Tobacco: Never Passive Smoke Exposure: Never Smokeless Tobacco: Never Tobacco Cessation:Counseling Given: Not Answered Alcohol Use Standard Drinks/Week Comments Never 0 (1 standard drink = 0.6 oz pur e alcohol) Depression Answer Date Recorded Patient Health Questionnaire-9 Score 3 01/24/2025 Patient Health Questionnaire-9 Score 3 01/24/2025 Last PHQ-9: Questionnaire Data Not on file 0 01/24/2025 Housing Stability Answer Date Recorded What is your housing situation today? I have lexx lamar 01/24/[address] you li ve. Do you have problems with any of the following? None of the above 01/24/2025 Food Insecurity Answer Date Recorded Within the past 12 months, y ou worried that your food would run out before you got money to buy more: Never True 01/24/2025 Within the past 12 months,th e food you bought just didn't last and you didn't have enough money to get more: Never True Transportation Answer Date Recorded In the past 12 months, has l ack of transportation kept you from medical appts, meetings, work or from getting things needed for daily living? No 01/24/2025 Utilities Answer Date Recorded In the past 12 months, has t he electric, gas, oil or water company threatened to shut off services in your home? No 01/24/2025 Depression Answer Date Recorded Patient Health Questionnaire-2 Score 0 01/24/2025 Internet Access Answer Date Recorded Internet Access Q1 Yes 01/24/2025 Internet Access Q2 Not on file 01/24/2025 Comments No Sex and Gender Information Value Date Recorded Sex Assigned at Female 06/03/2022 10:27 AM EDT Legal Sex Female 10:27 AM EDT Gender Identity Female 07/05/2024 10:43 AM EST Sexual Orientation Straight 07/05/2024 10 :43 AM EST Last Filed Vital Signs Vital Sign Reading Time Taken Comments Blood Pressure 136/70 01/24/2025 10:19 AM EDT Pulse 88 01/24/2025 10:19 AM EDT Temperature 36.6 C (97.9 F) 01/24/2025 10:19 AM EDT Respiratory Rate 20 01/24/2025 10:19 AM EDT Oxygen Saturation 97% 01/24/2025 10:19 AM EDT Inhaled Oxygen Concentration - - Weight 102 kg (224 lb 8 oz) 01/24/2025 10:19 AM EDT Height 170.2 cm (5' 7 ) 01/24/2025 10:19 AM EDT Body Mass Index 35.16 01/24/2025 10:19 AM EDT Plan of Treatment Health Maintenance Due Date Last Done Comments HIV Screening 1980 Lipid Panel 1980 Diabetes: Foot Exam 1990 Eye Exam 1990 Alcohol/Substance Use Screening 1992 Family Planning (PISQ) 1995 HPV Vaccines (1 - 3-dose series) 1995 Hepatitis C Screening 1998 DTaP/Tdap/Td Vaccines (1 - Tdap) 1999 Diabetes: Urine Protein Screening 1999 Hepatitis B Vaccines (1 of 3 - 19+ 3-dose series) 1999 Pneumococcal Vaccine: Pediatrics (0 to 5 Years) and At-Risk Patients (6 to 49) Years (1 of 2 - PCV) 1999 Pap Smear 2001 Cervical Cancer Screening 2010 HPV/Cotest 2010 Mammogram 2020 COVID-19 Vaccine (1 - 2023-2 5 season) 2024 Influenza Vaccine (#1) 2025 07/31/2018 Diabetes: Hemoglobin A1C 04/26/2025 025, 12/23/2024 Depression Screening 01/24/2026 01/24/2025, 01/24/2025 Disability Screening 01/24/2026 01/24/2025 SDOH Screening 01/24/2026 01/24/2025 Tobacco Screening 01/24/2026 01/24/2025 Zoster Vaccines (1 of 2) 2030 RSV Patients and Patients Aged 60 years or older (1 - [...] Name Priority Date/Time Associated Diagnosis Comments POCT GLYCATED HEMOGLOBIN, TOTAL Routine 01/24/2025 10:23 AM EDT Type 2 diabetes mellitus with hyperglycemia, with long-term current use of insulin ([facility]) POCT GLUCOSE Routine 01/24/2025 10:21 AM EDT Type 2 diabetes mellitus with hyperglycemia, with long-term current use of insulin ([facility]) POCT URINALYSIS DIPSTICK Routine 12/23/2024 1:20 PM EDT Type 2 diabetes mellitus with hyperglycemia, with long-term current use of insulin ([facility]) POCT GLUCOSE Routine 12/23/2024 1:20 PM EDT Type 2 diabetes mellitus with hyperglycemia, with long-term current use of insulin ([facility]) POCT GLYCATED HEMOGLOBIN, TOTAL Routine 12/23/2024 1:20 PM EDT Type 2 diabetes mellitus with hyperglycemia, with long-term current use of insulin ([facility]) from Last 3 Months Results * (ABNORMAL) POCT HGB A1C (01/24/2025 10:23 AM EDT) Only the most recent of2 resultswithin the time period is included. Hemoglobin A1C 9.7(A) 4.0 - 6.0 % QC Media Lot # [id number] Lot# Expiration Date Blood 01/24/2025 10:2 3 AM EDT Jeny Michaels DO POINT OF CARE TEST ENTER/BRIANA T ORDERABLES Final Result * (ABNORMAL) POCT Glucose (01/24/2025 10:21 AM EDT) Only the most recent of2 resultswithin the time period is included. Glucose Blood, POC 219(A) 60 - 200 mg/dL QC Media Lot # [id number] Lot# Expiration Date Blood Capillary blood specimen / Unknown 01/24/2025 10:21 AM EDT Jeny Michaels DO POINT OF CARE TEST ENTER/BRIANA T ORDERABLES Final Result * (ABNORMAL) POCT urinalysis [...] Final Result from Last 3 Months Insurance [facility] C3 Care Teams Rubber Press Operator Relationship Specialty Start Date End Date Jeny Michaels DO [address] [place] [phone] PCP - General Family Medicine 01/24/25
[2025-03-03 13:14] LABS: MANUAL DIFF FLAG NO
[2025-03-03 13:24] LABS: Hematocrit 44.8 % (37.0-47.0); Hemoglobin 14.6 g/dl (12.0-16.0); Imm Gran Abs Auto 0.02 X10*3/uL (0.00-0.03); Imm Gran Pct Auto 0.3 % (0.0-0.4); Lymphocytes Absolute Auto 2.6 X10*3/uL (1.2-4.9); Mean Corpuscular HGB Conc 32.6 g/dl (31.0-35.0); Mean Corpuscular Hemoglobin 26.4 pg (27.0-33.0); Mean Corpuscular Volume 81.0 fL (80.0-98.0); NRBC Abs Auto 0.000 X10*3/uL (0.0-0.012); NRBC Pct Auto 0.0 /100WBC (0.0-0.2); Platelet Count 365 X10*3/uL (160-400); Red Blood Count 5.53 X10*6/uL (4.20-5.50); White Blood Count 7.2 X10*3/uL (4.8-10.8)
[2025-03-03 13:27] LABS: Hematocrit 43.6 % (37.0-47.0); Hemoglobin 14.4 g/dl (12.0-16.0); Mean Corpuscular HGB Conc 33.0 g/dl (31.0-35.0); Mean Corpuscular Hemoglobin 26.8 pg (27.0-33.0); Mean Corpuscular Volume 81.2 fL (80.0-98.0); NRBC Abs Auto 0.000 X10*3/uL (0.0-0.012); NRBC Pct Auto 0.0 /100WBC (0.0-0.2); Platelet Count 317 X10*3/uL (160-400); Red Blood Count 5.37 X10*6/uL (4.20-5.50); White Blood Count 7.0 X10*3/uL (4.8-10.8)
[2025-03-03 13:32] LABS: Hemoglobin A1C 292.2384 umol/L; Hemoglobin A1C 293.5565 umol/L; Total Hemoglobin (HGBA1C) 3687.6292 umol/L; Total Hemoglobin (HGBA1C) 3695.0836 umol/L
[2025-03-03 13:56] LABS: Microalbum/Creatinine Ratio Ur 183.4 ug/mg cr (<30)
[2025-03-03 14:03] LABS: HIV Num 1 0.05 S/CO (0.00-0.99); ~HepC Num1 0.33 S/CO (0.00-0.79); ~Hepatitis C Antibody Nonreactive (Nonreactive)
[2025-03-03 14:05] LABS: Alanine Aminotransferase 23 U/L (0-31); Albumin Level 3.9 g/dL (3.5-5.0); Alkaline Phosphatase 109 U/L (39-117); Anion Gap 12 (12-20); Aspartate Amino Transferase 24 U/L (5-31); Blood Urea Nitrogen 16 mg/dL (9-16); Calcium 8.6 mg/dL (8.4-10.2); Carbon Dioxide 24 mmol/L (22-29); Chloride 105 mmol/L (96-108); Cholesterol 190 mg/dL (<200); Estimated Glomerular Filt Rate > 60; HDL Cholesterol 51 mg/dL (>40); Potassium 4.0 mmol/L (3.3-5.1); Sodium 137 mmol/L (135-145); Total Protein 7.5 g/dL (6.5-8.0); Triglycerides 86 mg/dL (<150)
[2025-03-03 14:07] LABS: HBS Num1 0.00 mIU/mL (0-7.99); HBc Num1 0.18 S/CO (0.00-0.79); HBsAGNum1 0.33 S/CO (0.00-0.99); HIV Num 1 0.06 S/CO (0.00-0.99); Hepatitis B Surface Antigen Negative (Negative); ~HepC Num1 0.33 S/CO (0.00-0.79); ~Hepatitis B Surface Antibody NONREACTIVE (Nonreactive); ~Hepatitis C Antibody Nonreactive (Nonreactive)
[2025-03-03 14:10] LABS: Free T4 (Free Thyroxine) 1.03 ng/dL (0.71-1.85)
[2025-03-03 14:11] LABS: Alanine Aminotransferase 18 U/L (0-31); Albumin Level 3.9 g/dL (3.5-5.0); Alkaline Phosphatase 108 U/L (39-117); Anion Gap 12 (12-20); Aspartate Amino Transferase 27 U/L (5-31); Blood Urea Nitrogen 16 mg/dL (9-16); Calcium 8.6 mg/dL (8.4-10.2); Carbon Dioxide 24 mmol/L (22-29); Chloride 105 mmol/L (96-108); Cholesterol 189 mg/dL (<200); Estimated Glomerular Filt Rate > 60; HDL Cholesterol 52 mg/dL (>40); Potassium 3.9 mmol/L (3.3-5.1); Sodium 137 mmol/L (135-145); Total Protein 7.5 g/dL (6.5-8.0); Triglycerides 86 mg/dL (<150)
[2025-03-03 14:12] LABS: Thyroid Stimulating Hormone 0.21 uIU/mL (0.32-4.0)
[2025-03-03 15:32] LABS: CT PCR Urine DETECTED (Not Detect.); NG PCR Urine NOT DETECTED (Not Detect.)
[2025-03-04 03:46] LABS: ~Hepatitis A Antibody IgG 11.28 S/CO (0.00-0.99)
[2025-03-04 10:50] LABS: Lyme Abs Screen <0.90 index
[2025-03-04 14:43] LABS: Rubeola IgG (Measles) >300.00 AU/mL
[2025-03-05 21:49] LABS: TS Negative Control Passed; TS Panel A 0; TS Panel B 0; TS Positive Control Passed; TSpotTB Negative (Negative)
[2025-03-07 11:43] LABS: Anti Nuclear Antibody Screen NEGATIVE (NEGATIVE)
[2025-03-08 07:33] LABS: Rapid Plasma Reagin Ab Titer 1:2
== END 2025-03-03 10:12 | disposition home or self-care (01) ==
LOC: HO.HHCL 10:11
PROVIDERS: Family Medicine; PCP Family Medicine; Visit Provider Family Medicine
DX: Z00.00 Encounter for general adult medical examination without abnormal findings (principal); Z11.3 Encounter for screening for infections with a predominantly sexual mode of transmission; Z11.59 Encounter for screening for other viral diseases; Z11.4 Encounter for screening for human immunodeficiency virus [HIV]; Z11.1 Encounter for screening for respiratory tuberculosis; E11.65 Type 2 diabetes mellitus with hyperglycemia; L80 Vitiligo; E78.49 Other hyperlipidemia; R03.0 Elevated blood-pressure reading, without diagnosis of hypertension; M25.50 Pain in unspecified joint; Z68.35 Body mass index [BMI] 35.0-35.9, adult; Z79.4 Long term (current) use of insulin
CPT/HCPCS: 36415; 80048; 80061; 80076; 82043; 82306; 82570; 83036; 84439; 84443; 85025; 85027; 85652; 86038; 86140; 86431; 86481; 86592; 86593; 86617; 86618; 86704; 86706; 86708; 86735; 86762; 86765; 86787; 86803; 87340; 87389; 87491; 87591

== ENCOUNTER 2025-06-16 10:36 | Outpatient (REF) | payer MEDICAID, SELFPAY ==
--- OUTSIDE RECORDS SUMMARY | 2025-06-16 13:02 | XMS_ITS | Encounter Summary ---
Author Organization [employer] Address [address] [place] [address] Care Team Providers Care Jewelry Technician Name Role Phone Jeny Michaels DO Primary Care Provider [phone] Reason for Visit * Reason Onset Date Comments Med Refill 06/15/2025 Encounter Details Date Type Department Care Team (Late st Contact Info) Description 06/15/2025 Telephone [facility] [address] [place], [place] [phone] Jeny Michaels DO [address] [place], [place] [phone] Med Refill Social History Tobacco Use Types Packs/Day Years Used Date Smoking Tobacco: Former Cigarettes Passive Smoke Exposure: Never Smokeless Tobacco: Never Alcohol Use Standard Drinks/Week Comments Never 0 [...] Orientation Straight 07/05/2024 10 :43 AM EST documented as of this encounter Miscellaneous Notes * Addendum Note - Claudine Mroales RN - 06/15/2025 4:24 PM ESTAddended by: CLAUDINE MORALES on: 06/15/2025 04:24 PM Modules accepted: Orders * Telephone Encounter - Claudine Morales RN - 06/15/2025 2:25 PM EST Per medrec, novolog has 11 refills remaining at [facility] from prescription in December. Last picked up in December. Lantus last picked up in April, 2 refills remaining. TC placed to pt. Pt. Had been checking with [facility] for novolog, however advised pt. Prescription was last picked up at [facility]. TC placed to [facility] pharmacy and they will get refill ready for pt. Now. Pt. Plans to come tomorrow to seed cone picker from [facility] pharmacy, and is aware Lantus refills can be picked up at [facility]. Informed pt. Bloodwork from 03/03/25 returned + for syphilis antibodies. Pt. Confirms she has been diagnosed with syphilis many years ago, which was treated and she was told at that time bloodwork would always return positive for syphilis. Informed pt. We would repeat the bloodwork at the time to ensure titer is not increasing which would indicate a new infection, otherwise will not need any further treatment. Pt. Confirms she completed the course of doxy for chlamydia and will be retested now as well to ensure resolution of infection. Pt. Informed of low TSH, repeat bloodwork order has also been placed and pt. Will have it done withrepeat syphilis bloodwork. In regards to [facility]'s concern about congenital syphilis: pt. Reports h/o tubal ligation. LMP approx 3weeks ago. Pt. Agrees to f/up appointment with PCP Thursday 06/21 at 11:45am for urgent f/up on labs as requested by Dr. Aaron. Will call [facility] with follow up when repeat titers are obtained * Telephone Encounter - Caity Arteaga - 06/15/2025 12:08 PM EST Pt walked in requesting refill on insulin. Pt states she has only been receiving one of them, pharmacy keeps stating they're waiting on approval from pcp. Pt states she is only receiving lantus. Phone number in chart updated. documented in this encounter Plan of Treatment Upcoming Encounters Date Type Department Care Team (Late st Contact Info) Description 06/21/2025 11:45 AM EST Office Visit [facility] [address] [place] [address] Jeny Michaels DO [address] [place] [address] Scheduled Orders Name Type Priority Associated Diagnoses Orde r Schedule Chlamydia/Trichomonas/Nei sseria gonorrhoeae, PCR, Urine Lab Routine Chlamydia Expected: 06/15/2025 (Approximate), Expires: 06/15/2026 Syphilis Screen Lab Routine Positive RPR test Expected: 06/15/2025, Expires: 06/15/2026 documented as of this encounter Goals Goal Patient Goal Type Associated Problems Recent Progress Patient-Stated? Author Help patients manage their type 2 diabetes Care Plan Help patients manage their type 2 diabetes No Arteaga, Caity Patient has chronic kidney disease Care Plan Patient has chronic kidney disease No Arteaga, Caity Help patients manage their type 2 diabetes Care Plan Help patients manage their type 2 diabetes No Arteaga, Caity Patient has diabetic neuropathy Care Plan Patient has diabetic neuropathy No Arteaga, Caity Patient has chronic kidney disease Care Plan Patient has chronic kidney disease No Arteaga, Caity Patient has diabetic neuropathy Care Plan Patient has diabetic neuropathy No Arteaga, Caity documented as of this encounter Visit Diagnoses Diagnosis Chlamydia Other specified chlamydial infection, in conditions classified elsewhere and of unspecified site Positive RPR test documented in this encounter Additional Health Concerns Active Problems Noted Date Diagnosed Date Help patients manage their type 2 diabetes 06/15 Patient has chronic kidney disease 06/15/2025 Help patients manage their type 2 diabetes 06/15 Patient has diabetic neuropathy 06/15/2025 Patient has chronic kidney disease 06/15/2025 Patient has diabetic neuropathy 06/15/2025 Assessment Noted Time PHQ-9 Depression Total Score: 3 01/25/20 1:07 PM EDT documented as of this encounter Care Teams Jewelry Technician Relationship Specialty Start Date End Date Jeny Michaels DO [address] [place] [phone] PCP - General Family Medicine 01/24/25 documented as of this encounter
--- OUTSIDE RECORDS SUMMARY | 2025-06-16 13:02 | XMS_ITS | Encounter Summary ---
Author Organization [employer] Address [address] [place] [address] Care Team Providers Care Fund Development Manager Name Role Phone Brando Jeny Primary Care Provider [phone]- [phone] Encounter Details Date Type Department Care Team (Late st Contact Info) Description 03/08/2025 Orders Only [facility] [address] [place], [place] [phone] Grazyna Triana MD [address] [place] [address] Dietary counseling; Exercise counseling; Class 2 obesity without serious comorbidity with body mass index (BMI) of 35.0 to 35.9 in adult, unspecified obesity type Social History Tobacco Use Types Packs/Day Years [...] AM EST documented as of this encounter Plan of Treatment Upcoming Encounters Date Type Department Care Team (Late st Contact Info) Description 06/21/2025 11:45 AM EST Office Visit [facility] [address] [place] [phone] Jeny Michaels DO [address] [place] [phone] documented as of this encounter Visit Diagnoses Diagnosis Dietary counseling Dietary surveillance and counseling Exercise counseling Class 2 obesity without serious comorbidity with body mass index (BMI) of 35.0 to 35.9 in adult, unspecified obesity type documented in this encounter Additional Health Concerns Assessment Noted Time PHQ-9 Depression Total Score: 3 01/25/20 25 1:07 PM EDT documented as of this encounter Care Teams Fund Development Manager Relationship Specialty Start Date End Date Jeny Michaels DO [address] [place] [phone] PCP - General Family Medicine 01/24/25 documented as of this encounter
--- OUTSIDE RECORDS SUMMARY | 2025-06-16 13:02 | XMS_ITS | Encounter Summary ---
Author Organization [employer] Address [address] [place] [address] Care Team Providers Care Plow Shaker Name Role Phone Aviva Michaelsfer Primary Care Provider [phone] Reason for Visit * Reason Comments Med Refill Encounter Details Date Type Department Care Team (Late st Contact Info) Description 03/16/2025 Refill [facility] [address] [place], [place] [phone] Nancy Aaron MD [address] [place] [address] Type 2 diabetes mellitus with hyperglycemia, with long-term current use of insulin ([facility]) Social History Tobacco Use Types Packs/Day Years [...] EST Office Visit [facility] [address] [place] [phone] Jeny Michaels DO [address] [place] [phone] documented as of this encounter Visit Diagnoses Diagnosis Type 2 diabetes mellitus with hyperglycemia, with long-term current use of insulin (HCC) documented in this encounter Additional Health Concerns Assessment Noted Time PHQ-9 Depression Total Score: 3 01/25/20 25 1:07 PM EDT documented as of this encounter Care Teams Plow Shaker Relationship Specialty Start Date End Date Jeny Michaels DO [address] [place] [phone] PCP - General Family Medicine 01/24/25 documented as of this encounter
--- OUTSIDE RECORDS SUMMARY | 2025-06-16 13:02 | XMS_ITS | Clinical Summary ---
Author Organization [employer] Address [address] [facility] [address] [place] [address] Care Team Providers Care Pathology Secretary Name Role Phone PranavJeny roe Primary Care Provider Allergies No known active allergies Medications Blood Pressure kit Check blood pressure daily 1 kit 5 Active Continuous Glucose Rolled Seat Trimmer (FreeStyle Corine 3 [place]) deviceIndicatio ns:Type 2 diabetes mellitus with hyperglycemia, with long-term current use of insulin ([facility]) 1 each Once per day. Use as directed for CGM 1 each 5 Active glucose blood (FreeStyle Precision Nicolas Test) test stripIndication s:Type 2 diabetes mellitus with hyperglycemia, with long-term current use of insulin ([facility]) Use to test blood sugar bid times daily in case of CGM failure or extremes of BG 100 each 5 12/24/19 26 Active Continuous Glucose Sensor (FreeStyle Corine 3 Plus Sensor) miscIndications :Type 2 diabetes mellitus with hyperglycemia, with long-term current use of insulin ([facility]) 1 each every 15 days. Apply 1 every 15 days as directed for CGM 2 each 5 Active insulin aspart (NovoLOG FLEXPEN) 100 UNIT/ML penIndications: Type 2 diabetes mellitus with hyperglycemia, with long-term current use of insulin ([facility]) Use 8 units before breakfast, lunch and dinner -paraguayan 10 mL 5 Active Lantus SoloStar 100 UNIT/ML penIndications: Type 2 diabetes mellitus with hyperglycemia, with long-term current use of insulin ([facility]) Inject 45 Units under the skin in the morning. 3 mL 5 Active aspirin 81 MG EC tablet Take 1 tablet (81 mg) by mouth Once per day. 30 tablet 01/25/20 26 Active atorvastatin (Lipitor) 10 MG tablet Take [...] each Active Blood Glucose Monitoring Suppl (FreeStyle [place]ite) w/Device kit Use to test blood [...] at bedtime (pain). 150 g 2 Active cholecalciferol (Vitamin D-3) 25 MCG (1000 UT) tablet Take 1 tablet (25 mcg) by mouth Once per day. 90 tablet 3 Active Active Problems Problem Noted Date Diagnosed Date Tendinitis 03/08/2025 Assessment & Plan (03/08/2025 8:05 PM EDT): Rest, avoid repetitive movement, take ibuprofen as needed, call back if worsening BMI 35.0-35.9,adult 01/24/2025 Vitiligo 01/24/2025 Hyperlipidemia 01/24/2025 [...] Encounters Date Type Department Care Team Description 06/15/2025 Telephone [facility] [address] [place] [phone] Jeny Michaels DO Med Refill 06/03/2025 Telephone [facility] [address] [place], [place] [phone] Jeny Michaels DO call back 03/16/2025 Refill [facility] [address] [place], [place] [phone] Nancy Aaron MD Type 2 diabetes mellitus with hyperglycemia, with long-term current use of insulin ([facility]) from Last 3 Months Immunizations Immunization Administration [...] Sign Reading Time Taken Comments Blood Pressure 154/88 03/08/2025 7:45 PM EDT Pulse 89 03/08/2025 7:45 PM EDT Temperature 36.6 C (97.8 F) 03/08/2025 7:45 PM EDT Respiratory Rate 17 03/08/2025 7:45 PM EDT Oxygen Saturation 97% 01/24/2025 10:19 AM EDT Inhaled Oxygen Concentration - - Weight 102 kg (225 lb 2 oz) 03/08/2025 7:45 PM E DT Height 170.2 cm (5' 7 ) 03/08/2025 7:45 PM EDT Body Mass Index 35.26 03/08/2025 7:45 PM EDT Plan of Treatment Upcoming Encounters Date Type Department Care Team (Late st Contact Info) Description 06/21/2025 11:45 AM EST Office Visit [facility] [address] [place] [address] Jeny Michaels DO [address] [place] [address] Health Maintenance Due Date Last Done Comments CT Colonography 1980 Colonoscopy 1980 Colorectal Cancer Screening 1980 FIT DNA/Cologuard 1980 FIT 1980 FOBT 1980 Sigmoidoscopy 1980 Diabetes: Foot Exam 1990 Eye Exam 1990 Alcohol/Substance Use Screening 1992 Family Planning (PISQ) 1995 HPV Vaccines (1 - 3-dose series) 1995 DTaP/Tdap/Td Vaccines (1 - Tdap) 1999 Hepatitis B Vaccines (1 of 3 - 19+ 3-dose series) 1999 Pneumococcal Vaccine: Pediatrics (0 to 5 Years) and At-Risk Patients (6 to 49) Years (1 of 2 - PCV) 1999 Pap Smear 2001 Cervical Cancer Screening 2010 HPV/Cotest 2010 Mammogram 2020 COVID-19 Vaccine ( - season) 2025 Influenza Vaccine (#1) 2025 07/31/2018 Diabetes: Hemoglobin A1C 06/03/2025 025, 03/03/2025, 01/24/2025, Additional history exists Depression Screening 01/24/2026 01/24/2025, 01/25/20 25 Disability Screening 01/24/2026 01/24/2025 SDOH Screening 01/24/2026 01/24/2025 Diabetes: Urine Protein Screening 03/03/2026 03/03/2025 Lipid Panel 03/03/2026 03/03/2025, 03/03/2025 Tobacco Screening 03/08/2026 03/08/2025 Zoster Vaccines (1 of 2) 2030 RSV Patients and Patients Aged 60 years or older (1 - 1-dose 75+ series) 2055 HIV Screening Completed 03/03/2025, 03/03/2025 Hepatitis C Screening Completed 03/03/2025, 025 HIB Vaccines Aged Out No longer eligi [...] on patient's age to complete this topic Goals Goal Patient Goal Type Associated Problems [...] Patient has diabetic neuropathy No Arteaga, Caity Procedures Procedure Name Priority Date/Time Associated Diagnosis Comments HEPATITIS C AB W/REFL TO HCV RNA, QN, PCR Routine 03/03/2025 10:39 AM EDT Screening examination for STI HIV 1/2 ANTIGEN/ANTIBODY, FOURTH GENERATION W/RFL Routine 03/03/2025 10:39 AM EDT Screening examination for STI ALBUMIN, RANDOM URINE W/CREATININE Routine 03/03/2025 10:39 AM EDT Type 2 diabetes mellitus with hyperglycemia, with long-term current use of insulin ([facility]) HEMOGLOBIN A1C Routine 03/03/2025 10:39 AM EDT Routine history and physical examination of adult Type 2 diabetes mellitus with hyperglycemia, with long-term current use of insulin ([facility]) Other hyperlipidemia Elevated blood pressure reading without diagnosis of hypertension Polyarthralgia Vitiligo BMI 35.0-35.9,adult LIPID PANEL, STANDARD Routine 03/03/2025 10:39 AM EDT Routine history and physical examination of adult Type 2 diabetes mellitus with hyperglycemia, with long-term current use of insulin (CMS/HCC) Other hyperlipidemia Elevated blood pressure reading without diagnosis of hypertension Polyarthralgia Vitiligo BMI 35.0-35.9,adult from Last 3 Months or Most Recently Relevant to Health Maintenance Results * (ABNORMAL) Albumin, Random Urine W/Creatinine (03/03/2025 10:39 AM EDT) Creatinine, Urine 131.94 mg/dL [facility] Microalbumin Urine 242.0 mg/L H [facility] Microalbum Creatinine Ratio Ur 183.4(H) <30 ug/mg cr [facility] Comment:Albumin/Creatinine R atio Reference Ranges: Normal: < 30 ug/mg creatinine Microalbuminuria: 30 - 300 ug/mg creatinineClinical Albuminuria: > 300 ug/mg creatinine Urine 03/03/2025 10:3 9 AM EDT 03/03/2025 1:01 PM EDT Nancy Aaron MD LAB URINE ORDERABLES Final Result Performing Organization Address [facility]/ZIP Co de Phone Number [facility] [address] [place] [phone] * Hepatitis C Antibody with Reflex to HCV, RNA, Quantitative, Real-Time PCR (03/03/2025 10:39 AM EDT) Hepatitis C Antibody Nonreactive Nonreactive [facility] Comment:Antibodies to HCV no t detected; does not exclude early acuteHCV infection. Blood Venous blood specimen / Unknown 03/03/2025 10:39 AM EDT 03/03/2025 12:57 PM EDT Nancy Aaron MD LAB BLOOD ORDERABLES Final Result Performing Organization Address [facility]/ZIP Co de Phone Number [facility] [address] [place] [phone] * HIV-1/2 Antigen and Antibodies, Fourth Generation, with Reflexes (03/03/2025 10:39 AM EDT) HIV AB/AG Nonreactive Nonreactive [facility] Comment:HIV-1 p24 Ag and/or HIV-1/HIV-2 Ab not detected.A test result that is nonreactive does not exclude thepossibility of exposure to or infection with HIV-1 and/orHIV-2. Nonreactive results in this assay for individualswith prior exposure to HIV-1 and/or HIV-2 may be due toantigen and antibody levels that are below the limit ofdetection of this assay.The Xormis HIV Ag/Ab Combo assay result andsupplemental assay results should be interpreted inconjunction with the patient's clinical presentation,history and other laboratory results. If the results areinconsistent with clinical evidence, additional testing issuggested to confirm the result. Blood Venous blood specimen / Unknown 03/03/2025 10:39 AM EDT 03/03/2025 12:57 PM EDT us Nancy Aaron MD LAB BLOOD ORDERABLES Final Result [facility] [address] [place] [phone] * (ABNORMAL) Hemoglobin A1c (03/03/2025 10:39 AM EDT) Hemoglobin A1c 9.4(H) <6.0 % [facility] Comment:Hemoglobin A1C Refer ence Range Adults: 4.8 - 6.0 % Non diabetic: < 6.0 % Goal: < 7.0 %Additional Action Suggested: > 8.0 %Note: Hemoglobin A1c results are invalid for patients with abnormal amounts of HbF. Blood transfusions may impact the HbA1c concentration in the patient sample. Estimated Average Glucose 223 mg/dL [facility] Comment:eAG = Estimated ave rage glucose which is %A1C expressed asaverage glucose, using the formula of the D8F-TlowfbaQuincad Glucose study (ADAG), Diabetes Care, Vol.31,#8,2007 Blood Venous blood specimen / Unknown 03/03/2025 10:39 AM EDT 03/03/2025 12:57 PM EDT us Jeny Michaels DO LAB BLOOD ORDERABLES Final R esult Performing Organization Address [facility] Co de Phone Number [facility] [address] [place] [phone] * (ABNORMAL) Lipid Panel, Standard (03/03/2025 10:39 AM EDT) Triglycerides 86 <150 mg/dL [facility] Comment:Desirable Triglyceri de: less than 150 mg/dLBorderline High Triglyceride 150-199 mg/dLHigh Triglyceride: 200-499 mg/dLVery High Triglyceride: greater than or equal to 5OO mg/dL Cholesterol 190 <200 mg/dL [facility] Comment:Desirable Cholestero l: less than 200 mg/dLBorderline High Cholesterol: 200-239 mg/dLHigh Cholesterol: greater than 239 mg/dL LDL Cholesterol Calculated 122(H) <100 mg/dL [facility] Comment:Desirable LDL: less than 100 mg/dLNear Optimal/Above Optimal LDL: 110- 129 mg/dLBorderline High LDL: 130-159 mg/dLHigh LDL: 160-189 mg/dLVery High LDL: greater than or equal to 190 mg/dL HDL Cholesterol 51 >40 mg/dL [facility] Comment:Desirable HDL: great er than 40 mg/dL Note: This HDL assay may give artificially low results in patients with liver disease. Blood Venous blood specimen / Unknown 03/03/2025 10:39 AM EDT 03/03/2025 12:57 PM EDT us Jeny Michaels DO LAB BLOOD ORDERABLES Final R esult Performing Organization Address City/[facility]/ZIP Co de Phone Number [facility] [address] [place] [address] [phone] from Last 3 Months or Most Recently Relevant to Health Maintenance Additional Health Concerns Active Problems Noted Date Diagnosed Date Help patients manage their type 2 diabetes 06/15 Patient has chronic kidney disease 06/15/2025 Help patients manage their type 2 diabetes 06/15 Patient has diabetic neuropathy 06/15/2025 Patient has chronic kidney disease 06/15/2025 Patient has diabetic neuropathy 06/15/[address] [place] [address] [place] [address] C3 Care Teams Pathology Secretary Relationship Specialty Start Date End Date Jeny Michaels DO [address] [place] [phone] PCP - General Family Medicine 01/24/25
[2025-06-17 03:43] LABS: Syphilis Screen Reactive (Nonreactive)
[2025-06-25 15:12] LABS: T.Pallidum Particle Agg Test Reactive (Nonreactive)
== END 2025-06-16 10:37 | disposition home or self-care (01) ==
LOC: HO.HHCL 10:36
PROVIDERS: Family Medicine; PCP Family Medicine; Visit Provider Family Medicine
DX: R79.89 Other specified abnormal findings of blood chemistry (principal); A53.0 Latent syphilis, unspecified as early or late
CPT/HCPCS: 36415; 84443; 86592; 86780

== ENCOUNTER 2025-06-21 16:13 | Outpatient (REF) | payer MEDICAID, SELFPAY ==
--- OUTSIDE RECORDS SUMMARY | 2025-06-21 11:45 | XMS_ITS | Encounter Summary ---
Author Organization [employer] Address [address] [place] [address] Care Team Providers Care Insurance Claims Analyst Name Role Phone Jeny Michaels DO Primary Care Provider [phone] Encounter Details Date Type Department Care Team (Late st Contact Info) Description 06/21/2025 11:45 AM EST Office Visit [facility] [address] [place], [place] [phone] Jeny Michaels DO [address] [place], [place] [phone] Type 2 diabetes mellitus with hyperglycemia, with long-term current use of insulin (HCC); Chlamydia; Encounter for immunization Social History Tobacco Use Types Packs/Day Years [...] AM EST documented as of this encounter Last Filed Vital Signs Vital Sign Reading Time Taken Comments Blood Pressure 128/70 06/21/2025 12:07 PM EST Pulse 90 06/21/2025 12:07 PM EST Temperature 36.9 C (98.4 F) 06/21/2025 12:07 PM EST Respiratory Rate 19 06/21/2025 12:07 PM EST Oxygen Saturation 98% 06/21/2025 12:07 PM EST Inhaled Oxygen Concentration - - Weight 101 kg (223 lb) 06/21/2025 12:07 PM EST Height 170.2 cm (5' 7 ) 06/21/2025 12:07 PM EST Body Mass Index 34.93 06/21/2025 12:07 PM EST documented in this encounter Plan of Treatment Not on file documented as of this encounter Goals Goal [...] Care Plan Patient has diabetic neuropathy No [place] Caity Patient has chronic kidney disease Care Plan Patient has chronic kidney disease No Jeny Michaels DO Patient has chronic kidney disease Care Plan Patient has chronic kidney disease No Jeny Michaels DO Patient has diabetic neuropathy Care Plan Patient has diabetic neuropathy No Jeny Michaels DO Patient has diabetic neuropathy Care Plan Patient has diabetic neuropathy No Jeny Michaels DO documented as of this encounter Procedures Procedure Name Priority Date/Time Associated Diagnosis Comments POCT GLUCOSE Routine 06/21/2025 1:34 PM EST Type 2 diabetes mellitus with hyperglycemia, with long-term current use of insulin (HCC) CHLAMYDIA/TRICHOMONA S/NEISSERIA GONORRHOEAE, PCR, URINE Routine 06/21/2025 12:47 PM EST Chlamydia POCT GLYCATED HEMOGLOBIN, TOTAL Routine 06/21/2025 12:41 PM EST Type 2 diabetes mellitus with hyperglycemia, with long-term current use of insulin ([facility]) POCT GLUCOSE Routine 06/21/2025 12:41 PM EST Type 2 diabetes mellitus with hyperglycemia, with long-term current use of insulin ([facility]) POCT URINALYSIS DIPSTICK Routine 06/21/2025 12:39 PM EST Type 2 diabetes mellitus with hyperglycemia, with long-term current use of insulin ([facility]) documented in this encounter Results * (ABNORMAL) POCT Glucose (06/21/2025 1:34 PM EST) Glucose Blood, POC 500(A) 60 - 200 mg/dL Comment:[facility] after insuline QC Media Lot # [id number] Lot# Expiration Date Blood Capillary blood specimen / Unknown 06/21/2025 1:34 PM EST Jeny Michaels DO POINT OF CARE TEST ENTER/BRIANA T ORDERABLES Final Result * Chlamydia/N. Gonorrhoeae, PCR, Urine (06/21/2025 12:47 PM EST) CT PCR, Urine NOT DETECTED Not Detect. [facility] Comment:A not detected test result does not exclude the possibilityof infection because test results can be affected byimproper specimen collection, concurrent antibiotic therapy,or the number of organisms in the specimen which may bebelow the sensitivity of the test. As with many diagnostictests, results from the Xpert CT/NG assay should beinterpreted in conjunction with other laboratory andclinical data available to the clinician.The Xpert CT/NG assay should not be used for the evaluationof suspected sexual abuse or for other medico-legalindications. Additional testing is recommended in anycircumstance when false positive or false negative resultscould lead to adverse medical, social or psychologicalconsequences. NG PCR, Urine NOT DETECTED Not Detect. [facility] Comment:A not detected test result does not exclude the possibilityof infection because test results can be affected byimproper specimen collection, concurrent antibiotic therapy,or the number of organisms in the specimen which may bebelow the sensitivity of the test. As with many diagnostictests, results from the Xpert CT/NG assay should beinterpreted in conjunction with other laboratory andclinical data available to the clinician.The Xpert CT/NG assay should not be used for the evaluationof suspected sexual abuse or for other medico-legalindications. Additional testing is recommended in anycircumstance when false positive or false negative resultscould lead to adverse medical, social or psychologicalconsequences. Urine (Urine, Random) 06/21/2025 12:47 PM EST 06/21/2025 4:14 PM EST Jeny Michaels DO LAB URINE ORDERABLES Final R esult [facility] [address] [place] [phone] * (ABNORMAL) POCT Hgb A1c (06/21/2025 12:41 PM EST) Hemoglobin A1C 13.0(A) 4.0 - 5.7 % QC Media Lot # [id number] Lot# Expiration Date [id number] Blood 06/21/2025 12:4 1 PM EST Jeny Michaels DO POINT OF CARE TEST ENTER/BRIANA T ORDERABLES Final Result * (ABNORMAL) POCT Glucose (06/21/2025 12:41 PM EST) Glucose Blood, POC 500(A) 60 - 200 mg/dL Comment:[facility] QC Media Lot # [id number] Lot# Expiration Date [id number] Blood Capillary blood specimen / Unknown 06/21/2025 12:41 PM EST Jeny Michaels DO POINT OF CARE TEST ENTER/BRIANA T ORDERABLES Final Result * (ABNORMAL) POCT Urinalysis (06/21/2025 12:39 PM EST) Color, UA Yellow Clarity, UA Clear Glucose, UA 3+ 500+++ Bilirubin, UA Negative Ketones, UA Negative Spec Grav, UA 1.010 Blood, UA Positive(A) Negative, None Detected Comment:Trace-lysed pH, UA 5.5 Protein, UA Negative Urobilinogen, UA 0.2 Leukocytes, UA Negative Negative, Rare, Trace Nitrite, UA Negative Negative, None Detected QC Media Lot # [id number] Lot# Expiration Date [id number] Urine (Urine, Random) 06/21/2025 12:39 PM EST Result [facility] Jeny Michaels DO POINT OF CARE TEST ENTER/BRIANA T ORDERABLES Final Result documented in this encounter Visit Diagnoses Diagnosis Type 2 diabetes mellitus with hyperglycemia, with long-term current use of insulin (HCC) Chlamydia Other specified chlamydial infection, in conditions classified elsewhere and of unspecified site Encounter for immunization documented in this encounter Administered Medications Inactive Administered Medications - up to 3 most recent administrations Medication Order MAR Action Action Date Dose Rate Site Insulin Lispro solution 10 Units 10 Units, Injection, Once, On Fri06/21/25 at 1330, For 1 doseIndications:Type 2 diabetes mellitus with hyperglycemia, with long-term current use of insulin (HCC) Given 06/21/2025 1:30 PM EST 10 Units Left Upper Abdomen documented in this encounter Additional Health Concerns Active Problems Noted Date Diagnosed Date Help patients manage their type 2 diabetes 06/15 Patient has chronic kidney disease 06/15/2025 Help patients manage their type 2 diabetes 06/15 Patient has diabetic neuropathy 06/15/2025 Patient has chronic kidney disease 06/15/2025 Patient has diabetic neuropathy 06/15/2025 Patient has chronic kidney disease 06/21/2025 Patient has chronic kidney disease 06/21/2025 Patient has diabetic neuropathy 06/21/2025 Patient has diabetic neuropathy 06/21/2025 Assessment Noted Time PHQ-9 Depression Total Score: 3 01/25/20 1:07 PM EDT documented as of this encounter Care Teams Insurance Claims Analyst Relationship Specialty Start Date End Date Jeny Michaels DO [address] [place] [phone] PCP - General Family Medicine 01/24/25 documented as of this encounter
[2025-06-22 12:10] LABS: CT PCR Urine NOT DETECTED (Not Detect.); NG PCR Urine NOT DETECTED (Not Detect.)
--- OUTSIDE RECORDS SUMMARY | 2025-06-22 13:23 | XMS_ITS | Encounter Summary ---
Author Organization [employer] Address [address] [place] [address] Care Team Providers Care Floral Arranger Name Role Phone KaileyJeny owen Primary Care Provider [phone] Encounter Details Date Type Department Care Team (Latest Contact Info) Description 06/21/2025 Travel Social History Tobacco Use Types Packs/Day Years [...] as of this encounter Plan of Treatment Not on [...] Care Plan Patient has diabetic neuropathy No [place], Caity Patient has chronic kidney disease Care [...] Michaels DO documented as of this encounter Visit Diagnoses Not on filedocumented in this encounter Additional Health Concerns Active [...] documented as of this encounter Care Teams Floral Arranger Relationship Specialty Start Date End Date Jeny Michaels DO [address] [place] [phone] PCP - General Family Medicine 01/24/25 documented as of this encounter
--- OUTSIDE RECORDS SUMMARY | 2025-06-22 13:23 | XMS_ITS | Encounter Summary ---
Author Organization [employer] Address [address] [facility] [address] [place] [address] Care Team Providers Care Rug Frame Mounter Name Role Phone Brando Jeny Primary Care Provider [phone] Encounter Details Date Type Department Care Team (Late st Contact Info) Description 03/08/2025 Orders Only [facility] [address] [place], [place] [phone] Grazyna Triana MD [address] [place], [place] [phone] Dietary counseling; Exercise counseling; Class 2 obesity [...] on file documented as of this encounter Visit Diagnoses Diagnosis Dietary counseling Dietary surveillance and counseling Exercise counseling Class 2 obesity without serious comorbidity with body mass index (BMI) of 35.0 to 35.9 in adult, unspecified obesity type documented in this encounter Additional Health Concerns Assessment Noted Time PHQ-9 Depression Total Score: 3 01/25/20 25 1:07 PM EDT documented as of this encounter Care Teams Rug Frame Mounter Relationship Specialty Start Date End Date Jeny Michaels DO [address] [place] [phone] PCP - General Family Medicine 01/24/25 documented as of this encounter
--- OUTSIDE RECORDS SUMMARY | 2025-06-22 13:24 | XMS_ITS | Clinical Summary ---
Author Organization [employer] Address [address] [facility] [address] [place] [address] Care Team Providers Care Physicist [employer] Name Role Phone Brando Jeny Primary Care Provider Allergies No known active allergies Medications Blood Pressure kit Check blood pressure daily 1 kit 12/24/19 25 Active glucose blood (FreeStyle Precision Nicolas Test) test stripIndicatio ns:Type 2 diabetes mellitus with hyperglycemia, with long-term current use of insulin (HCC) Use to test blood sugar bid times daily in case of CGM failure or extremes of BG 100 each 12/24/19 25 Active Continuous Glucose Sensor (FreeStyle Corine 3 Plus Sensor) miscIndication s:Type 2 diabetes mellitus with hyperglycemia, with long-term current use of insulin ([facility]) 1 each every 15 days. Apply 1 every 15 days as directed for CGM 2 each 01/25/20 Active insulin aspart (NovoLOG FLEXPEN) 100 UNIT/ML penIndications :Type 2 diabetes mellitus with hyperglycemia, with long-term current use of insulin ([facility]) Use 8 units before breakfast, lunch and dinner -kittitian 10 mL 3 01/25/20 25 Active aspirin 81 MG EC tablet Take 1 tablet (81 mg) by mouth Once per day. 30 tablet 01/25/20 25 026 Active atorvastatin (Lipitor) 10 MG tablet Take 1 tablet (10 mg) by mouth Once per day. 30 tablet 01/25/20 25 026 Active FREESTYLE LITE test strip Use to test blood sugar 3 times daily 100 each 01/25/20 25 026 Active Lancets misc Use to test blood sugar 3 times daily 100 each 01/25/20 25 Active Alcohol Swabs 70 % pads Use to test blood sugar 3 times daily 100 each 20 25 Active Blood Glucose Monitoring Suppl (FreeStyle [place] Lite) w/Device kit Use to test blood sugar 3 times daily 1 kit 01/25/20 Active pen needle 32G x 4 mm misc Use as instructed 120 each 11 01/25/20 25 026 Active acetaminophen (Tylenol 8 Hour) 650 MG ER tablet Take 1 tablet (650 mg) by mouth every 8 (eight) hours if needed for mild pain. Do not crush, chew, or split. 50 tablet 2 01/25/20 25 026 Active Diclofenac Sodium 1 % gel Apply 2 g topically if needed in the morning, at noon, in the evening, and at bedtime (pain). 150 g 2 01/25/20 Active cholecalcifero l (Vitamin D-3) 25 MCG (1000 UT) tablet Take 1 tablet (25 mcg) by mouth Once per day. 90 tablet 3 03/08/20 Active Continuous Glucose Travel Registered Nurse Icu (FreeStyle Corine 3 Marshall) deviceIndicati ons:Type 2 diabetes mellitus with hyperglycemia, with long-term current use of insulin ([facility]) 1 each Once per day. Use as directed for CGM 1 each 06/21/20 Active gabapentin (Neurontin) 300 MG capsule Take 1 capsule (300 mg) by mouth 3 times daily. 90 capsule 3 06/21/20 25 026 Active insulin degludec (Tresiba FlexTouch) 200 UNIT/ML injection Inject 44 Units under the skin in the morning. 3 mL 3 06/21/20 25 026 Active Tirzepatide (Mounjaro) 2.5 MG/0.5ML solution auto-injector Inject 2.5 mg under the skin 1 (one) time per week. 2 mL 3 06/21/20 Active Continuous Glucose Travel Registered Nurse Icu (FreeStyle Corine 3 Marshall) deviceIndicati ons:Type 2 diabetes mellitus with hyperglycemia, with long-term current use of insulin ([facility]) 1 each Once per day. Use as directed for CGM 1 each 12/24/19 25 025 Discontinued(Re order (will not trigger notification to Pharmacy)) Lantus SoloStar 100 UNIT/ML penIndications :Type 2 diabetes mellitus with hyperglycemia, with long-term current use of insulin ([facility]) Inject 45 Units under the skin in the morning. 3 mL 3 01/25/20 25 025 Discontinued Dulaglutide (Trulicity) 0.75 MG/0.5ML solution auto-injector Inject 0.75 mg under the skin 1 (one) time per week. 2 mL 3 01/25/20 025 Discontinued gabapentin (Neurontin) 300 MG capsule Take 1 capsule (300 mg) by mouth 3 times daily. 90 capsule 3 01/25/20 025 Discontinued(Re order (will not trigger notification to Pharmacy)) Hospital, Clinic, or Other Facility Administered Medication Ordered Dose Route Frequency Start Date End Date Status Insulin Lispro solution 10 UnitsIndications:Type 2 diabetes mellitus with hyperglycemia, with long-term current use of insulin (HCC) 10 Units IJ Once 06/21/2025 06/21/2025 Ended Active Problems Problem Noted Date Diagnosed Date [...] Encounters Date Type Department Care Team Description 06/21/2025 11:45 AM EST Office Visit [facility] [address] [place] [address] Jeny Michaels DO Type 2 diabetes mellitus with hyperglycemia, with long-term current use of insulin (HCC); Chlamydia; Encounter for immunization 06/21/2025 Travel 06/15/2025 Telephone [facility] [address] [place] [address] Jeny Michaels, Med Refill 06/03/2025 Telephone [facility] [address] [place] [address] Jeny Michaels, DO call back from Last 3 Months Immunizations Immunization Administration Dates Next Due Influenza injectable quadrivalent preservative f ree 07/31/2018 Influenza, seasonal, injectable, preservative fr ee 06/21/2025 Pfizer Covid-19 Vaccine 12+ 06/21/2025 Pneumococcal Conjugate PCV 20 06/21/2025 Tdap 06/21/2025 Family History Medical History Relation Name Comments [...] Mass Index 34.93 06/21/2025 12:07 PM EST Plan of Treatment Health Maintenance Due Date Last Done Comments CT Colonography 1980 Colonoscopy 1980 Colorectal Cancer Screening 1980 FIT DNA/Cologuard 1980 FIT 1980 FOBT 1980 Sigmoidoscopy 1980 Diabetes: Foot Exam 1990 Eye Exam 1990 Alcohol/Substance Use Screening 1992 Family Planning (PISQ) 1995 HPV Vaccines (1 - 3-dose series) 1995 Hepatitis B Vaccines (1 of 3 - 19+ 3-dose series) 1999 Pap Smear 2001 Cervical Cancer Screening 2010 HPV/Cotest 2010 Mammogram 2020 Diabetes: Hemoglobin A1C 09/21/2025 025, 03/03/2025, 03/03/2025, Additional history exists Depression Screening 01/24/2026 01/24/2025, 01/25/20 25 Disability Screening 01/24/2026 01/24/2025 SDOH Screening 01/24/2026 01/24/2025 Diabetes: Urine Protein Screening 03/03/2026 03/03/2025 Lipid Panel 03/03/2026 03/03/2025, 03/03/2025 Tobacco Screening 06/21/2026 06/21/2025 Zoster Vaccines (1 of 2) 2030 DTaP/Tdap/Td Vaccines (2 - Td or Tdap) 06/21/2035 06/21/2025 RSV Patients and Patients Aged 60 years or older (1 - 1-dose 75+ series) 2055 HIV Screening Completed 03/03/2025, 03/03/2025 Hepatitis C Screening Completed 03/03/2025, 025 COVID-19 Vaccine Completed 06/21/2025 Influenza Vaccine Completed 06/21/2025, 07/31/2018 Pneumococcal Vaccine: Pediatrics (0 to 5 Years) and At-Risk Patients (6 to 49) Years Completed 06/21/2025 HIB Vaccines Aged Out No longer eligi [...] patients manage their type 2 diabetes No ArteagaCaity orr Patient has chronic kidney disease Care Plan Patient has chronic kidney disease No ArteagaCharly orrira Help patients manage their type 2 diabetes Care Plan Help patients manage their type 2 diabetes No Arteaga Caity Patient has diabetic neuropathy Care Plan Patient has diabetic neuropathy No Arteaga Caity Patient has chronic kidney disease Care Plan Patient has chronic kidney disease No Arteaga Caity Patient has diabetic neuropathy Care Plan [...] has diabetic neuropathy No Jeny Michaels DO Procedures Procedure Name Priority Date/Time Associated Diagnosis Comments POCT GLUCOSE Routine 06/21/2025 1:34 PM EST Type 2 diabetes mellitus with hyperglycemia, with long-term current use of insulin ([facility]) CHLAMYDIA/TRICHOMON /NEISSERIA GONORRHOEAE, PCR, URINE Routine 06/21/2025 12:47 PM EST Chlamydia POCT GLYCATED HEMOGLOBIN, TOTAL Routine 06/21/2025 12:41 PM EST Type 2 diabetes mellitus with hyperglycemia, with long-term current use of insulin ([facility]) POCT GLUCOSE Routine 06/21/2025 12:41 PM EST Type 2 diabetes mellitus with hyperglycemia, with long-term current use of insulin ([facility]) POCT URINALYSIS DIPSTICK Routine 06/21/2025 12:39 PM EST Type 2 diabetes mellitus with hyperglycemia, with long-term current use of insulin ([facility]) SYPHILIS SCREEN Routine 06/16/2025 10:40 AM EST Positive RPR test TSH W/REFLEX TO FT4 Routine 06/16/2025 1 0:40 AM EST Low TSH level HEPATITIS C AB W/REFL TO HCV RNA, QN, PCR Routine 03/03/2025 10:39 AM EDT Screening examination for STI HIV 1/2 ANTIGEN/ANTIBODY, FOURTH GENERATION W/RFL Routine 03/03/2025 10:39 AM EDT Screening examination for STI ALBUMIN, RANDOM URINE W/CREATININE Routine 03/03/2025 10:39 AM EDT Type 2 diabetes mellitus with hyperglycemia, with long-term current use of insulin ([facility]) LIPID PANEL, STANDARD Routine 03/03/2025 10:39 AM EDT Routine history and physical examination of adult Type 2 diabetes mellitus with hyperglycemia, with long-term current use of insulin ([facility]) Other hyperlipidemia Elevated blood pressure reading without diagnosis of hypertension Polyarthralgia Vitiligo BMI 35.0-35.9,adult from Last 3 Months or Most Recently Relevant to Health Maintenance Results * (ABNORMAL) POCT Glucose (06/21/2025 1:34 PM EST) Only the most recent of2 resultswithin the time period is included. Glucose Blood, POC 500(A) 60 - 200 mg/dL Comment:[facility] after insuline QC Media Lot # [id number] Lot# Expiration Date Blood Capillary blood specimen / Unknown 06/21/2025 1:34 PM EST Jeny Michaels DO POINT OF CARE TEST ENTER/BRIANA T ORDERABLES Final Result * Chlamydia/N. Gonorrhoeae, PCR, Urine (06/21/2025 12:47 PM EST) CT PCR, Urine NOT DETECTED Not Detect. [facility] Comment:A not detected test result does [...] NG PCR, Urine NOT DETECTED Not Detect. [facility] Comment:A not detected test result does [...] DO LAB URINE ORDERABLES Final R esult [facility] [address] [place] [phone] * (ABNORMAL) POCT Hgb A1c (06/21/2025 12:41 PM EST) Hemoglobin A1C 13.0(A) 4.0 - 5.7 % QC Media Lot # [id number] Lot# Expiration Date Blood 06/21/2025 12:4 1 PM EST Jeny [...] Media Lot # [id number] Lot# Expiration Date , Urine (Urine, Random) 06/21/2025 12:39 PM EST Jeny Michaels DO POINT OF CARE TEST ENTER/BRIANA T ORDERABLES Final Result * (ABNORMAL) Syphilis Screen (06/16/2025 10:40 AM EST) Syphilis Screen Reactive( A) Nonreactive [facility] Comment:Reactive specimens a re sent to [facility] confirmatory tests. Blood 06/16/2025 10:4 0 AM EST 06/16/2025 12:58 PM EST Jeny Michaels DO LAB BLOOD ORDERABLES Final R esult Performing Organization Address City/[facility]/ZIP Co de Phone Number [facility] [address] [place] [phone] * TSH W/Reflex to FT4 (06/16/2025 10:40 AM EST) TSH reflex Free T4 2.44 0.32 - 4.0 uIU/mL [facility] Blood Venous blood specimen / Unknown 06/16/2025 10:40 AM EST 06/16/2025 12:58 PM EST Nancy Aaron MD LAB BLOOD ORDERABLES Final Result Performing Organization Address City/[facility]/ZIP Co de Phone Number [facility] [address] [place] [phone] * (ABNORMAL) Albumin, Random Urine W/Creatinine (03/03/2025 10:39 AM EDT) Creatinine, Urine 131.94 mg/dL [facility] Microalbumin Urine 242.0 mg/L H [facility] Microalbum Creatinine Ratio Ur 183.4(H) <30 ug/mg cr [facility] Comment:Albumin/Creatinine R atio Reference Ranges: Normal: < 30 ug/mg creatinine Microalbuminuria: 30 - 300 ug/mg creatinineClinical Albuminuria: > 300 ug/mg creatinine Urine 03/03/2025 10:3 9 AM EDT 03/03/2025 1:01 PM EDT Nancy Aaron MD LAB URINE ORDERABLES Final Result Performing Organization Address [facility]/ZIP Co de Phone Number [facility] [address] [place] [phone] * Hepatitis C Antibody with Reflex to HCV, RNA, Quantitative, Real-Time PCR (03/03/2025 10:39 AM EDT) Hepatitis C Antibody Nonreactive Nonreactive [facility] Comment:Antibodies to HCV no t detected; does not exclude early acuteHCV infection. Blood Venous blood specimen / Unknown 03/03/2025 10:39 AM EDT 03/03/2025 12:57 PM EDT Nancy Aaron MD LAB BLOOD ORDERABLES Final Result Performing Organization Address [facility] Co de Phone Number [facility] [address] [place] [phone] * HIV-1/2 Antigen and Antibodies, Fourth Generation, with Reflexes (03/03/2025 10:39 AM EDT) HIV AB/AG Nonreactive Nonreactive [facility] Comment:HIV-1 p24 Ag and/or HIV-1/HIV-2 Ab not detected.A test result that is nonreactive does not exclude thepossibility of exposure to or infection with HIV-1 and/orHIV-2. Nonreactive results in this assay for individualswith prior exposure to HIV-1 and/or HIV-2 may be due toantigen and antibody levels that are below the limit ofdetection of this assay.The [email or web address] HIV Ag/Ab Combo assay result andsupplemental assay results should be interpreted inconjunction with the patient's clinical presentation,history and other laboratory results. If the results areinconsistent with clinical evidence, additional testing issuggested to confirm the result. Blood Venous blood specimen / Unknown 03/03/2025 10:39 AM EDT 03/03/2025 12:57 PM EDT us Nancy Aaron MD LAB BLOOD ORDERABLES Final Result Performing Organization Address [facility] Co de Phone Number [facility] [address] [place] [phone] * (ABNORMAL) Lipid Panel, Standard (03/03/2025 10:39 AM EDT) Triglycerides 86 <150 mg/dL [facility] Comment:Desirable Triglyceri de: less than 150 mg/dLBorderline High Triglyceride 150-199 mg/dLHigh Triglyceride: 200-499 mg/dLVery High Triglyceride: greater than or equal to 5OO mg/dL Cholesterol 190 <200 mg/dL [facility] Comment:Desirable Cholestero l: less than 200 mg/dLBorderline High Cholesterol: 200-239 mg/dLHigh Cholesterol: greater than 239 mg/dL LDL Cholesterol Calculated 122(H) <100 mg/dL [facility] Comment:Desirable LDL: less than 100 mg/dLNear [...] ORDERABLES Final R esult Performing Organization Address City/[facility]/ZIP Co de Phone Number [facility] [address] [place] [phone] from Last 3 Months or Most [...] neuropathy 06/21/2025 Patient has diabetic neuropathy 06/21/2025 Insurance [facility] C3 Care Teams Physicist [employer] Relationship Specialty Start Date End Date Jeny Michaels DO [address] [place] [phone] PCP - General Family Medicine 01/24/25
--- OUTSIDE RECORDS SUMMARY | 2025-06-22 13:24 | XMS_ITS | Encounter Summary ---
Author Organization [employer] Address [address] [facility] [address] [place] [address] Care Team Providers Care Manufacturing Lead Name Role Phone Aviva Michaelsfer Primary Care Provider [phone] Reason for Visit * Reason Comments Med Refill Encounter Details Date Type Department Care Team (Late st Contact Info) Description 03/16/2025 Refill [facility] [address], [place] [phone] Nancy Aaron MD [address] [place] [address] Type 2 diabetes mellitus with hyperglycemia, with long-term current use of insulin ([facility]) Social History Tobacco Use Types [...] documented as of this encounter Care Teams Manufacturing Lead Relationship Specialty Start Date End Date Jeny Michaels DO [address] [place] [address] PCP - General Family Medicine 01/24/25 documented as of this encounter
== END 2025-06-21 16:14 | disposition home or self-care (01) ==
LOC: HO.LNP 16:13
PROVIDERS: Visit Provider Family Medicine
DX: A74.9 Chlamydial infection, unspecified (principal)
CPT/HCPCS: 87491; 87591